=== PATIENT | female | born 1955 | race Caucasian/White ===

== ENCOUNTER 2017-06-28 20:55 | Emergency (ER) | payer MEDICARE ==
[~2017-06-28] VITALS: Ht 172.7 cm; Wt 157.4 kg
[2017-06-28] MEDS ORDERED: IV NORMAL SALINE 1,000ML 1,000 ML IV ONE (21:15)
[2017-06-28] MEDS ORDERED: ONDANSETRON PF 4 MG/2 ML VIAL. IV ONE (21:30)
[2017-06-28] MEDS ORDERED: IOHEXOL 300 MG/ML 75 ML VIAL. IV ONE ×2 (21:30)
[2017-06-28] MEDS ORDERED: KETOROLAC 30 MG/ML VIAL. IV ONE (21:30)
[2017-06-28] MEDS ORDERED: CONTRAST GIVEN MC PRN (21:45)
[2017-06-28 21:49] LABS: BASO # 0.1 x10^3/uL (0.0-0.2); BASO % 1 % (0-3); EOS # 0.2 x10^3/uL (0.0-0.7); EOS % 1 % (0-3); HEMATOCRIT 47.9 % (36.0-47.0); HEMOGLOBIN 16.3 g/dL (12.0-15.5); LYMPH # 1.4 x10^3/uL (1.0-4.8); LYMPH % 10 % (24-48); MEAN CORPUSCULAR HEMOGLOBIN 31 pg (25-35); MEAN CORPUSCULAR HGB CONC 34 g/dL (31-37); MEAN CORPUSCULAR VOLUME 91 fL (79-100); MONO # 0.7 x10^3/uL (0.0-1.1); MONO % 5 % (0-9); NEUT # 11.8 x10^3uL (1.8-7.7); NEUT % 84 % (31-73); PLATELET COUNT 353 x10^3/uL (140-400); RED BLOOD COUNT 5.25 x10^6/uL (3.50-5.40); RED CELL DISTRIBUTION WIDTH 13.5 % (11.5-14.5); WHITE BLOOD COUNT 14.1 x10^3/uL (4.0-11.0)
[2017-06-28 21:56] LABS: ALBUMIN 3.4 g/dL (3.4-5.0); ALBUMIN/GLOBULIN RATIO 0.7 (1.0-1.7); CALCIUM 9.2 mg/dL (8.5-10.1); CREATININE 0.8 mg/dL (0.6-1.0); GFR 72.9; TOTAL BILIRUBIN 0.9 mg/dL (0.2-1.0); TOTAL PROTEIN 8.4 g/dL (6.4-8.2)
--- NOTE | 2017-06-28 23:18 | RAD ---
INDICATION: Omni 300, 100ml IV. Abdominal pain, abdominal hernia. Hx , cholecystectomy, uterine ablation, dnc x2. Unable to use table straps to compress abdomen due to patient discomfort.
COMPARISON: None. TECHNIQUE: Axial CT images obtained through the abdomen and pelvis with contrast. One or more of the following individualized dose reduction techniques were utilized for this examination: 1. Automated exposure control; 2. Adjustment of the mA and/or kV according to patient size; 3. Use of iterative reconstruction technique. FINDINGS: Mild linear opacities at lung bases. Could be atelectasis or scarring. Abdominal aorta is not aneurysmal. Liver appears low attenuation and prominent in size. Could be from fatty infiltration. Mild possible nodularity of the contour. No peripancreatic fluid collection. Spleen unremarkable. No left-sided hydronephrosis. Urinary bladder is largely decompressed. No right-sided hydronephrosis. Large ventral abdominal wall hernia at the anterior aspect of the pelvis extending into the patient's pannus with multiple loops of bowel extending into it. This hernia sac is only partially visualized on this exam as it extends inferiorly. There are adjacent dilated loops of bowel within the abdomen with more distal decompression. Degenerative changes throughout the spine. There is some scoliotic curvature of the spine. Multilevel central canal and neural foraminal stenosis. IMPRESSION: Dilated loops of bowel are seen within the abdomen concerning for small bowel obstruction. There is a large ventral pelvic wall hernia just to the left midline extending into the pannus which is partially seen on this exam. This may be the site of obstruction given that the dilated loop of bowel extends into this region. There is some mild suspected associated edema to the mesentery. There is some questionable mild nodularity to the hepatic contour. Would correlate with patient history and symptoms in the region to ensure that there is not from chronic hepatic disease Electronically signed by: Randal Braun MD (06/28/2017 11:14 PM) [facility]
[2017-06-28 23:54] VITALS: BP 124/67
[2017-06-29] LABS: BILIRUBIN,URINE NEG (NEG); CLARITY,URINE HAZY; COLOR,URINE YELLOW; GLUCOSE,URINE 250 mg/dL (NEG); NITRITE,URINE NEG (NEG); RBC,URINE 0 /HPF (0-2); UROBILINOGEN,URINE 1 mg/dL (0.2 mg/dL)
[2017-06-29 00:01] LABS: BACTERIA,URINE FEW /HPF (0-FEW); SQUAMOUS EPITHELIAL CELL,UR FEW /LPF; WBC,URINE OCC /HPF (0-4)
--- NOTE | 2017-06-29 00:25 | PHYS DOC ---
Past History Past Medical History: CHF, COPD, Depression, Diabetes, GERD, High Cholesterol, Hypertension Past Surgical History: Cholecystectomy, , Tonsillectomy Alcohol Use: None Drug Use: None Adult General Chief Complaint Chief Complaint: ABDOMINAL PAIN HPI HPI 62-year-old female with a history of morbid obesity and a known anterior lower abdominal wall hernia now presents the emergency Department with worsening pain over the last day as well as nausea. Patient is concerned that she may have a recurrence of her hernia. She has had no vomiting. No fevers chills sweats or shaking chills. She's had normal bowel and bladder habits. Pain is not worse with movement. The remainder of her abdominal history includes laparoscopic cholecystectomy and gastroesophageal reflux disease. In addition patient has CHF , type 2 diabetes with insulin use, high cholesterol and high blood pressure, obstructive sleep apnea, depression Review of Systems Review of Systems Constitutional: Denies fever or chills [] Eyes: Denies change in visual acuity, redness, or eye pain [] HENT: Denies nasal congestion or sore throat [] Respiratory: Denies cough or shortness of breath [] Cardiovascular: No additional information not addressed in HPI [] GI: Denies abdominal pain, nausea, vomiting, bloody stools or diarrhea [] : Denies dysuria or hematuria [] Musculoskeletal: Denies back pain or joint pain [] Integument: Denies rash or skin lesions [] Neurologic: Denies headache, focal weakness or sensory changes [] Endocrine: Denies polyuria or polydipsia [] All other systems were reviewed and found to be within normal limits, except as documented in this note. Current Medications Current Medications Current Medications Medications (Trade) Dose Ordered Sig/Sebastian Start Time Stop Time Status Last Admin Dose Admin Info (Do NOT chart on this entry -- for MONITORING) 1 each PRN DAILY PRN 06/28/17 21:45 06/30/17 21:44 Iohexol (Omnipaque 300 Mg/ml) 75 ml 1X ONCE 06/28/17 21:30 06/28/17 21:31 DC 06/28/17 22:18 75 ML Ketorolac Tromethamine (Toradol) 30 mg 1X ONCE 06/28/17 21:30 06/28/17 21:31 DC 06/28/17 21:34 30 MG Ondansetron HCl (Zofran) 4 mg 1X ONCE 06/28/17 21:30 06/28/17 21:31 DC 06/28/17 21:34 4 MG Sodium Chloride 1,000 ml @ 1,000 mls/hr 1X ONCE 06/28/17 21:15 06/28/17 22:14 DC 06/28/17 21:34 1,000 MLS/HR Allergies Allergies Allergies Coded Allergies Type Severity Reaction Last Updated Verified No Known Drug Allergies 06/28/17 No Physical Exam Physical Exam Morbidly obese 62-year-old female alert and communicative in no acute distress. She has very large pannus with mild tenderness in the lower midabdomen. No guarding or rebound. No skin changes. Patient has a vertical scar from her umbilicus to her to accept this is distribution. No CVA tenderness. Normal bowel sounds Constitutional: Well developed, well nourished, no acute distress, non-toxic appearance. [] HENT: Normocephalic, atraumatic, bilateral external ears normal, oropharynx moist, no oral exudates, nose normal. [] Eyes: PERRLA, EOMI, conjunctiva normal, no discharge. [] Neck: Normal range of motion, no tenderness, supple, no stridor. [] Cardiovascular:Heart rate regular rhythm, no murmur [] Lungs & Thorax: Bilateral breath sounds clear to auscultation [] Abdomen: Bowel sounds normal, soft, abdominal exam as above no pulsatile masses. [] Skin: Warm, dry, no erythema, no rash. [] Back: No tenderness, no CVA tenderness. [] Extremities: No tenderness, no cyanosis, no clubbing, ROM intact, no edema. [] Neurologic: Alert and oriented X 3, normal motor function, normal sensory function, no focal deficits noted. [] Psychologic: Affect normal, judgement normal, mood normal. [] Current Patient Data Vital Signs Vital Signs Date Time Temp Pulse Resp B/P (MAP) Pulse Ox O2 Delivery O2 Flow Rate FiO2 06/28/17 23:54 90 18 124/67 (86) 98 Room Air 06/28/17 21:17 98.1 2.0 Lab Results Laboratory Tests Test 06/28/17 21:25 06/28/17 23:35 White Blood Count 14.1 x10^3/uL (4.0-11.0) H Red Blood Count 5.25 x10^6/uL (3.50-5.40) Hemoglobin 16.3 g/dL (12.0-15.5) H Hematocrit 47.9 % (36.0-47.0) H Mean Corpuscular Volume 91 fL (79-100) Mean Corpuscular Hemoglobin 31 pg (25-35) Mean Corpuscular Hemoglobin Concent 34 g/dL (31-37) Red Cell Distribution Width 13.5 % (11.5-14.5) Platelet Count 353 x10^3/uL (140-400) Neutrophils (%) (Auto) 84 % (31-73) H Lymphocytes (%) (Auto) 10 % (24-48) L Monocytes (%) (Auto) 5 % (0-9) Eosinophils (%) (Auto) 1 % (0-3) Basophils (%) (Auto) 1 % (0-3) Neutrophils # (Auto) 11.8 x10^3uL (1.8-7.7) H Lymphocytes # (Auto) 1.4 x10^3/uL (1.0-4.8) Monocytes # (Auto) 0.7 x10^3/uL (0.0-1.1) Eosinophils # (Auto) 0.2 x10^3/uL (0.0-0.7) Basophils # (Auto) 0.1 x10^3/uL (0.0-0.2) Sodium Level 134 mmol/L (136-145) L Potassium Level 4.0 mmol/L (3.5-5.1) Chloride Level 95 mmol/L (98-107) L Carbon Dioxide Level 33 mmol/L (21-32) H Anion Gap 6 (6-14) Blood Urea Nitrogen 17 mg/dL (7-20) Creatinine 0.8 mg/dL (0.6-1.0) Estimated GFR (Cockcroft-Gault) 72.9 BUN/Creatinine Ratio 21 (6-20) H Glucose Level 215 mg/dL (70-99) H Calcium Level 9.2 mg/dL (8.5-10.1) Total Bilirubin 0.9 mg/dL (0.2-1.0) Aspartate Amino Transferase (AST) 14 U/L (15-37) L Alanine Aminotransferase (ALT) 23 U/L (14-59) Alkaline Phosphatase 118 U/L (46-116) H Total Protein 8.4 g/dL (6.4-8.2) H Albumin 3.4 g/dL (3.4-5.0) Albumin/Globulin Ratio 0.7 (1.0-1.7) L Lipase 119 U/L (73-393) Urine Collection Type Unknown Urine Color Yellow Urine Clarity Hazy Urine pH 5.5 Urine Specific [place] 1.025 Urine Protein 100 mg/dl (NEG-TRACE) Urine Glucose (UA) 250 mg/dL (NEG) Urine Ketones (Stick) Neg mg/dL (NEG) Urine Blood Neg (NEG) Urine Nitrite Neg (NEG) Urine Bilirubin Neg (NEG) Urine Urobilinogen Dipstick 1 mg/dL (0.2 mg/dL) Urine Leukocyte Esterase Neg (NEG) Urine RBC 0 /HPF (0-2) Urine WBC Occ /HPF (0-4) Urine Squamous Epithelial Cells Few /LPF Urine Bacteria Few /HPF (0-FEW) EKG EKG [] Radiology/Procedures Radiology/Procedures [] Course & Med Decision Making Course & Med Decision Making Pertinent Labs and Imaging studies reviewed. (See chart for details) Signs and symptoms consistent with possible complication of known abdominal wall hernia. Patient hemodynamically stable. Very mild tachycardia on arrival resolved after IV fluids. Blood pressure stable. Patient has no active vomiting and nausea is relieved after treatment. She was hydrated with a liter of normal saline. Labs with mildly elevated white blood cell count of 14.1. Blood glucose 215. CT shows anterior lower abdominal wall hernia with evidence of small bowel distention suggestive of small bowel obstruction. Patient will be kept nothing by mouth. Case discussed with Dr. Archuleta surgery on-call at [facility]. He is aware the history and findings, agrees with current therapy, and will provide his services in consultation at [facility] upon the patient's transfer and admission. Case discussed with Dr. Gallo the hospitalist on-call who is aware the history and findings and she accepts the patient in patient to her service to the [facility] floor in transfer [] Dragon Disclaimer Dragon Disclaimer This electronic medical record was generated, in whole or in part, using a voice recognition dictation system. Departure Departure: Impression: Primary Impression: Abdominal wall hernia Additional Impressions: Small bowel obstruction Abdominal pain Leukocytosis Disposition: 02 XFER SHT-TRM HOSP Condition: STABLE Referrals: VIKASH NUNEZ APRN (PCP) Problem Qualifiers BRUNO SUE MD June 29, 2017 00:25
[2017-06-29] MEDS ORDERED: IBUP800T19 PO (02:24)
[2017-06-29] MEDS ORDERED: BUPR-192 PO (02:24)
[2017-06-29] MEDS ORDERED: ASPI-630 PO (02:24)
[2017-06-29] MEDS ORDERED: INSU100I13 SQ (02:24)
[2017-06-29] MEDS ORDERED: LISI2.5T PO (02:25)
[2017-06-29] MEDS ORDERED: TRAM-48 PO (02:31)
[2017-06-29] MEDS ORDERED: VENL75CA PO (02:31)
[2017-06-29] MEDS ORDERED: MEGE40TA PO (02:31)
[2017-06-29] MEDS ORDERED: NYST15PO2 TP (02:31)
[2017-06-29] MEDS ORDERED: TORS20TA2 PO (02:31)
[2017-06-29] MEDS ORDERED: TRIA15CR50 TP (02:31)
[2017-06-29] MEDS ORDERED: METF10002 PO (02:31)
[2017-06-29] MEDS ORDERED: METO25TA4 PO (02:31)
[2017-06-29] MEDS ORDERED: SIMV40TA3 PO (02:31)
[2017-06-29] MEDS ORDERED: PROM25TA10 PO (02:31)
[2017-06-29] MEDS ORDERED: POTA10TA10 PO (02:31)
[2017-06-29] MEDS ORDERED: OMEP40CA5 PO (02:31)
== END 2017-06-29 00:56 | disposition short-term general hospital (02) ==
LOC: ER 20:55
DX: K43.9 Ventral hernia without obstruction or gangrene (principal); K56.699 Other intestinal obstruction unspecified as to partial versus complete obstruction; D72.829 Elevated white blood cell count, unspecified; J44.9 Chronic obstructive pulmonary disease, unspecified; E11.9 Type 2 diabetes mellitus without complications; K21.9 Gastro-esophageal reflux disease without esophagitis; E78.00 Pure hypercholesterolemia, unspecified; I11.0 Hypertensive heart disease with heart failure; I50.9 Heart failure, unspecified; E66.01 Morbid (severe) obesity due to excess calories; G47.33 Obstructive sleep apnea (adult) (pediatric); F32.9 Major depressive disorder, single episode, unspecified; Z90.49 Acquired absence of other specified parts of digestive tract; Z68.43 Body mass index [BMI] 50.0-59.9, adult
CPT/HCPCS: 36415; 74177; 80053; 81001; 83690; 85025; 96374; 96375; 99285; J1885; J2405; Q9967; J7030

== ENCOUNTER → 2017-08-05 | Outpatient (CLI) | payer MEDICARE ==
[~2017-08-05] MED LIST: ASPI-630 PO; BUPR-192 PO; IBUP800T19 PO; INSU100I13 SQ; IOHEXOL 240 MG/ML 50ML VIAL. PO ONE; IOHEXOL 300 MG/ML 50 ML VIAL. IV ONE; IOHEXOL 300 MG/ML 75 ML VIAL. IV ONE; LISI2.5T PO; MEGE40TA PO; METF10003 PO; METO25TA4 PO; NYST15PO2 TP; OMEP40CA5 PO; POTA10TA10 PO; PROM25TA10 PO; SIMV40TA3 PO; TORS20TA2 PO; TRAM-48 PO; TRIA15CR50 TP; VENL75CA PO
--- NOTE | 2017-08-05 09:42 | RAD ---
PQRS Compliance Statement: One or more of the following individualized dose reduction techniques were utilized for this examination: 1. Automated exposure control 2. Adjustment of the mA and/or kV according to patient size 3. Use of iterative reconstruction technique CT abdomen/pelvis with contrast 08/05/2017 9:06 AM INDICATION: Hernia repair surgery in June. Abscess at incisional site. COMPARISON: CT abdomen/pelvis June 28, 2017. TECHNIQUE: Multiple axial CT images of the abdomen and pelvis were obtained after the intravenous administration of nonionic contrast. Coronal and sagittal reformats are provided. FINDINGS: Lung bases are clear. Heart size is within normal limits. No suspicious hepatic lesion is visualized. The spleen is nonenlarged. Adrenal glands are normal in appearance. Pancreas is normal in appearance. The gallbladder is surgically absent. The abdominal aorta is normal in course and caliber. There are no pathologically enlarged lymph nodes in the abdomen and pelvis. There is no abdominal free fluid. There is no free intraperitoneal air. The kidneys enhance symmetrically. There is no suspicious renal mass. There is no hydronephrosis. There are no suspected calculi within the kidneys, ureters or urinary bladder. Oral contrast was administered. Opacified bowel loops demonstrate normal mucosal fold pattern. Small and large bowel are normal in caliber. There is no evidence for bowel obstruction. There are no pericolonic inflammatory changes. Appendix is not definitively visualized. Postoperative changes are identified from ventral hernia repair. Superficial and inferior to the mesh, there is a gas containing thick walled collection measuring 8.3 x 4.0 x 5.4 cm. Given adjacent inflammatory changes, and is difficult to evaluate for recurrent hernia. Subcutaneous nodule in the right ventral abdominal subcutaneous fat measures 1.7 cm and may represent an injection site granuloma. Uterus and adnexa are normal in appearance. Urinary bladder is within normal limits given degree of distention. Follicular changes are identified in the right adnexa. No suspicious osseous lesions are identified. IMPRESSION: Suspect 8.3 x 4.0 x 5.4 cm abscess superficial and inferior to the abdominal mesh from prior hernia repair surgery. No evidence for bowel obstruction or inflammation. Electronically signed by: Kelly Ramires MD (08/05/2017 9:38 AM) [email or web address]
== END | disposition home or self-care (01) ==
LOC: CT 07:56
PROVIDERS: ATTEND Nurse Practitioner Family
DX: L02.211 Cutaneous abscess of abdominal wall (principal)
CPT/HCPCS: 74177; Q9966; Q9967

== ENCOUNTER 2018-08-29 13:04 | Inpatient (IN) | payer MEDICARE, OTHER ==
[~2018-08-29] VITALS: Ht 167.6 cm; Wt 157.2 kg
[~2018-08-29 13:04] MED LIST changes: -IOHEXOL 240 MG/ML 50ML VIAL. PO ONE; -IOHEXOL 300 MG/ML 50 ML VIAL. IV ONE; -IOHEXOL 300 MG/ML 75 ML VIAL. IV ONE; -METF10003 PO; +METF10007 PO
--- NOTE | 2018-08-29 14:53 | RAD ---
Acute abdominal series with single view chest 08/29/2018 INDICATION: Altered mental status. History of bowel obstruction. COMPARISON: CT abdomen/pelvis August 05, 2017 TECHNIQUE: Single view of the chest, upright view of the abdomen and 6 supine views of the abdomen are provided. FINDINGS: Cardiac mediastinal silhouette is borderline in size. Mild pulmonary vascular congestion. No pleural effusions are pneumothorax. No free intraperitoneal air. Cholecystectomy clips are identified in the right upper quadrant abdomen. There are no dilated loops of small or large bowel. There are no differential air-fluid levels. Moderate amount of stool is noted within the cecum. There is a ventral abdominal hernia containing nondilated loops of bowel. IMPRESSION: Nonobstructive bowel gas pattern with moderate amount of fecal contents throughout the colon. Abdominal hernia is present containing nondilated bowel loops. Electronically signed by: Kelly Ramires MD (08/29/2018 2:50 PM) [email or web address]
[2018-08-29 15:02] LABS: BASO # 0.1 x10^3/uL (0.0-0.2); BASO % 0 % (0-3); EOS % 0 % (0-3); HEMATOCRIT 45.2 % (36.0-47.0); LYMPH # 0.8 x10^3/uL (1.0-4.8); LYMPH % 5 % (24-48); MEAN CORPUSCULAR HEMOGLOBIN 31 pg (25-35); MEAN CORPUSCULAR HGB CONC 33 g/dL (31-37); MEAN CORPUSCULAR VOLUME 93 fL (79-100); MONO # 0.8 x10^3/uL (0.0-1.1); MONO % 4 % (0-9); NEUT # 15.4 x10^3uL (1.8-7.7); NEUT % 91 % (31-73); PLATELET COUNT 243 x10^3/uL (140-400); RED BLOOD COUNT 4.86 x10^6/uL (3.50-5.40); RED CELL DISTRIBUTION WIDTH 13.5 % (11.5-14.5)
[2018-08-29 15:11] LABS: AMORPHOUS SEDIMENT,UR PRESENT /HPF; BACTERIA,URINE 0 /HPF (0-FEW); BILIRUBIN,URINE NEG (NEG); CLARITY,URINE CLOUDY; COLOR,URINE YELLOW; GLUCOSE,URINE NEG (NEG); GRANULAR CASTS,URINE OCC /HPF; HYALINE CASTS, URINE OCC /HPF; NITRITE,URINE NEG (NEG); SQUAMOUS EPITHELIAL CELL,UR OCC /LPF; UROBILINOGEN,URINE 1 mg/dL (0.2 mg/dL)
[2018-08-29 15:25] LABS: ALBUMIN 2.7 g/dL (3.4-5.0); ALBUMIN/GLOBULIN RATIO 0.6 (1.0-1.7); CALCIUM 9.1 mg/dL (8.5-10.1); CREATININE 0.9 mg/dL (0.6-1.0); GFR 63.4; MAGNESIUM 1.6 mg/dL (1.8-2.4); POTASSIUM 4.3 mmol/L (3.5-5.1); TOTAL BILIRUBIN 0.6 mg/dL (0.2-1.0); TOTAL PROTEIN 7.5 g/dL (6.4-8.2)
--- NOTE | 2018-08-29 15:52 | EKG ---
[address] [address] Test Date: 2018-08-29 Test Time: 14:59:14 Pat Name: IZABEL WATERS Department: Room: Gender: F Belt Builder: MISSY : 1955 Requested By: GEORGIA RINCON Order Number: [id number] Reading MD: Measurements Intervals [place] Rate: 116 P: -105 OR: 116 QRS: 24 QRSD: 96 T: 48 QT: 310 QTc: 437 Interpretive Statements SUPRAVENTRICULAR RHYTHM QRS(T) CONTOUR ABNORMALITY CONSIDER ANTEROSEPTAL MYOCARDIAL DAMAGE POSSIBLY ABNORMAL ECG RI6.01 No previous ECG available for comparison
--- NOTE | 2018-08-29 16:35 | RAD ---
Examination: CT HEAD WO CONTRAST History: Confusion Comparison/Correlation: None Findings: Axial images of the head were obtained without contrast. Ventricles are normal size. No intracranial hemorrhage, midline shift, or mass effect. Globes and optic nerves are unremarkable. Paranasal sinuses are grossly unremarkable. No acute bony process. Impression: No acute process. PQRS Compliance Statement: One or more of the following individualized dose reduction techniques were utilized for this examination: 1. Automated exposure control 2. Adjustment of the mA and/or kV according to patient size 3. Use of iterative reconstruction technique Electronically signed by: Sam Wilkes MD (08/29/2018 4:32 PM) [facility]
--- NOTE | 2018-08-29 16:48 | PHYS DOC ---
Past History Past Medical History: CHF, COPD, Depression, Diabetes, High Cholesterol, Hypertension Past Surgical History: Cholecystectomy, , Tonsillectomy Alcohol Use: None Drug Use: None Adult General Chief Complaint Chief Complaint: ALTERED MENTAL STATUS HPI HPI Patient is a 63 year old female who presents with complaint of confusion and generalized weakness. Patient was brought the emergency department by family. Patient had a reported fall last night and states that she fell onto her left side under a picture frame. States she had difficulties been able to get herse lf up off the floor. Family note that she is confused to time and events. This is a significant change in her normal mental status. Patient has history morbid obesity, congestive heart failure, COPD, and diabetes mellitus. Currently denies any chest or abdominal pain. Has had previous history of intestinal obstruction and had to undergo laparotomy 1 year ago with placement of mesh. Denies any change in bowel habits currently. Reports having a fever last night of 101F but no fevers today. Family's concern for possible infection, especially possible urinary tract infection. Review of Systems Review of Systems Constitutional: Fever, generalized weakness[] Eyes: Denies change in visual acuity, redness, or eye pain [] HENT: Denies nasal congestion or sore throat [] Respiratory: Denies shortness of breath or cough[] Cardiovascular: Denies chest pain or edema[] GI: Denies abdominal pain, nausea, vomiting, bloody stools or diarrhea [] : Denies dysuria or hematuria [] Musculoskeletal: Denies back pain or joint pain [] Integument: Denies rash or skin lesions [] Neurologic: Confusion, denies focal weakness or sensory[] All other systems were reviewed and found to be within normal limits, except as documented in this note. Allergies Allergies Allergies Coded Allergies Type Severity Reaction Last Updated Verified No Known Drug Allergies 06/28/17 No Physical Exam Physical Exam Constitutional: Alert, afebrile, morbidly obese. [] HENT: Normocephalic, atraumatic, bilateral external ears normal, oropharynx moist, no oral exudates, nose normal. [] Eyes: PERRLA, EOMI, conjunctiva normal, no discharge. [] Neck: Normal range of motion, no tenderness, supple, no stridor. [] Cardiovascular:Heart rate regular rhythm, no murmur [] Lungs & Thorax: Bilateral breath sounds clear to auscultation [] Abdomen: Bowel sounds normal, soft, no tenderness, no masses, no pulsatile masses. [] Skin: Warm, dry, no erythema, no rash. [] Back: Abrasions to left buttock, no cellulitic change, no midline or paraspinous muscle tenderness, no CVA tenderness. [] Extremities: No tenderness, no cyanosis, no clubbing, ROM intact, no edema. [] Neurologic: Alert, oriented to person and place only, normal motor function, normal sensory function, no focal deficits noted. [] Current Patient Data Vital Signs Vital Signs Date Time Temp Pulse Resp B/P (MAP) Pulse Ox O2 Delivery O2 Flow Rate FiO2 08/29/18 13:15 99.1 114 16 98 Nasal Cannula 2.0 Lab Results Laboratory Tests Test 08/29/18 14:09 08/29/18 14:45 08/29/18 14:51 Glucose (Fingerstick) 136 mg/dL (70-99) H Urine Collection Type U cath Urine Color Yellow Urine Clarity Cloudy Urine pH 5.5 Urine Specific [place] >=1.030 Urine Protein >100 mg/dl (NEG-TRACE) Urine Glucose (UA) Neg mg/dL (NEG) Urine Ketones (Stick) Neg mg/dL (NEG) Urine Blood Large (NEG) Urine Nitrite Neg (NEG) Urine Bilirubin Neg (NEG) Urine Urobilinogen Dipstick 1 mg/dL (0.2 mg/dL) Urine Leukocyte Esterase Neg (NEG) Urine RBC 3-5 /HPF (0-2) Urine WBC 1-4 /HPF (0-4) Urine Squamous Epithelial Cells Occ /LPF Urine Amorphous Sediment Present /HPF Urine Bacteria 0 /HPF (0-FEW) Urine Hyaline Casts Occ /HPF Urine Granular Casts Occ /HPF White Blood Count 17.0 x10^3/uL (4.0-11.0) H Red Blood Count 4.86 x10^6/uL (3.50-5.40) Hemoglobin 15.0 g/dL (12.0-15.5) Hematocrit 45.2 % (36.0-47.0) Mean Corpuscular Volume 93 fL (79-100) Mean Corpuscular Hemoglobin 31 pg (25-35) Mean Corpuscular Hemoglobin Concent 33 g/dL (31-37) Red Cell Distribution Width 13.5 % (11.5-14.5) Platelet Count 243 x10^3/uL (140-400) Neutrophils (%) (Auto) 91 % (31-73) H Lymphocytes (%) (Auto) 5 % (24-48) L Monocytes (%) (Auto) 4 % (0-9) Eosinophils (%) (Auto) 0 % (0-3) Basophils (%) (Auto) 0 % (0-3) Neutrophils # (Auto) 15.4 x10^3uL (1.8-7.7) H Lymphocytes # (Auto) 0.8 x10^3/uL (1.0-4.8) L Monocytes # (Auto) 0.8 x10^3/uL (0.0-1.1) Eosinophils # (Auto) 0.0 x10^3/uL (0.0-0.7) Basophils # (Auto) 0.1 x10^3/uL (0.0-0.2) Platelet Estimate Pending Sodium Level 132 mmol/L (136-145) L Potassium Level 4.3 mmol/L (3.5-5.1) Chloride Level 95 mmol/L (98-107) L Carbon Dioxide Level 28 mmol/L (21-32) Anion Gap 9 (6-14) Blood Urea Nitrogen 16 mg/dL (7-20) Creatinine 0.9 mg/dL (0.6-1.0) Estimated GFR (Cockcroft-Gault) 63.4 BUN/Creatinine Ratio 18 (6-20) Glucose Level 175 mg/dL (70-99) H Calcium Level 9.1 mg/dL (8.5-10.1) Magnesium Level 1.6 mg/dL (1.8-2.4) L Total Bilirubin 0.6 mg/dL (0.2-1.0) Aspartate Amino Transferase (AST) 207 U/L (15-37) H Alanine Aminotransferase (ALT) 65 U/L (14-59) H Alkaline Phosphatase 97 U/L (46-116) Total Protein 7.5 g/dL (6.4-8.2) Albumin 2.7 g/dL (3.4-5.0) L Albumin/Globulin Ratio 0.6 (1.0-1.7) L EKG EKG Interpreted by me: Heart rate 116, sinus tachycardia, normal intervals, normal axis, no acute ST/T-wave abnormalities present[] Radiology/Procedures Radiology/Procedures [address] [address] IMAGING REPORT Signed PATIENT: IZABEL WATERS ACCOUNT: [id number] : 1955 LOCATION: ER AGE: 63 SEX: F EXAM STATUS: REG ER ORD. PHYSICIAN: GEORGIA RINCON MD REASON: confusion PROCEDURE: CT HEAD WO CONTRAST Examination: CT HEAD WO CONTRAST History: Confusion Comparison/Correlation: None Findings: Axial images of the head were obtained without contrast. Ventricles are normal size. No intracranial hemorrhage, midline shift, or mass effect. Globes and optic nerves are unremarkable. Paranasal sinuses are grossly unremarkable. No acute bony process. Impression: No acute process. PQRS Compliance Statement: One or more of the following individualized dose reduction techniques were utilized for this examination: 1. Automated exposure control 2. Adjustment of the mA and/or kV according to patient size 3. Use of iterative reconstruction technique Electronically signed by: Sam Singletary MD (08/29/2018 4:32 PM) [facility] DICTATED AND SIGNED BY: SAM SINGLETARY MD DATE: 08/29/18 163 CC: GEORGIA RINCON MD; VIKASH NUNEZ APRN ~ [address] [address] IMAGING REPORT Signed PATIENT: IZABEL WATERS ACCOUNT: [id number] : 1955 LOCATION: ER AGE: 63 SEX: F EXAM STATUS: REG ER ORD. PHYSICIAN: GEORGIA RINCON MD REASON: altered mental status, history of bowel obstruction PROCEDURE: ACUTE ABDOMEN SERIES Acute abdominal series with single view chest 08/29/2018 INDICATION: Altered mental status. History of bowel obstruction. COMPARISON: CT abdomen/pelvis August 05, 2017 TECHNIQUE: Single view of the chest, upright view of the abdomen and 6 supine views of the abdomen are provided. FINDINGS: Cardiac mediastinal silhouette is borderline in size. Mild pulmonary vascular congestion. No pleural effusions are pneumothorax. No free intraperitoneal air. Cholecystectomy clips are identified in the right upper quadrant abdomen. There are no dilated loops of small or large bowel. There are no differential air-fluid levels. Moderate amount of stool is noted within the cecum. There is a ventral abdominal hernia containing nondilated loops of bowel. IMPRESSION: Nonobstructive bowel gas pattern with moderate amount of fecal contents throughout the colon. Abdominal hernia is present containing nondilated bowel loops. Electronically signed by: Bonnie Gutierrez MD (08/29/2018 2:50 PM) [id number] DICTATED AND SIGNED BY: BONNIE GUTIERREZ MD DATE: 08/29/18 [id number] CC: GEORGIA RINCON MD; VIKASH NUNEZ APRN ~ [] Course & Med Decision Making Course & Med Decision Making Pertinent Labs and Imaging studies reviewed. (See chart for details) Patient vital signs and blood work meet SIRS criteria, however no obvious source of bacterial infection identified at this time. Due to continued confusion, the patient will need admission to the hospital for further evaluation and treatment. I spoke with Dr. Stinson who will accept care of patient in hospital. An order was placed to consult Dr. Nielsen of neurology to follow patient in hospital. Dragon Disclaimer Dragon Disclaimer This electronic medical record was generated, in whole or in part, using a voice recognition dictation system. Departure Departure: Impression: Primary Impression: Altered mental status Additional Impressions: SIRS (systemic inflammatory response syndrome) Type 2 diabetes mellitus Morbid obesity Disposition: ADMITTED INPATIENT Admitting Physician: Amanda Stinson Condition: GUARDED Referrals: VIKASH NUNEZ APRN (PCP) Problem Qualifiers Primary Impression: Altered mental status Altered mental status type: disorientation Qualified Codes: R41.0 - Disorientation, unspecified Additional Impressions: Type 2 diabetes mellitus Diabetes mellitus medical terminologist insulin use: with medical terminologist use Diabetes mellitus complication status: without complication Qualified Codes: E11.9 - Type 2 diabetes mellitus without complications; Z79.4 - senior care (current) use of insulin GEORGIA RINCON MD Aug 29, 2018 16:48
[2018-08-29] MEDS ORDERED: IV NORMAL SALINE 1,000ML 1,000 ML IV SCH (18:09)
[2018-08-29] MEDS ORDERED: ACETAMINOPHEN 325 MG TABLET PO PRN ×2 (18:15→18:30)
[2018-08-29] MEDS ORDERED: ONDANSETRON PF 4 MG/2 ML VIAL. IV PRN ×2 (18:15→18:30)
[2018-08-29 18:39] VITALS: BP 111/70
[2018-08-29] MEDS: NYSTATIN TOPICAL POWDER 15GM BOTTLE. TP SCH (22:00)
[2018-08-29] MEDS: INSULIN GLARGINE 300 UNITS/3 ML INSULN.PEN. SQ SCH (22:00)
[2018-08-29 22:02] LABS: % BANDS 4 % (0-9); % EOS 1 % (0-5); % LYMPHS 2 % (24-48); % MONOS 3 % (0-10); % SEGS 90 % (35-66)
[2018-08-29 22:05] LABS: PLT ESTIMATE ADEQUATE (ADEQUATE); POLYCHROMASIA SLIGHT; SCHISTOCYTES OCC
[2018-08-29] MEDS: METOPROLOL TART IMMED RELEASE 25 MG TABLET PO SCH (22:40)
[2018-08-29] MEDS: VENLAFAXINE XR 37.5 MG CAP.ER.24H. PO SCH (22:40)
[2018-08-29] MEDS: IV NORMAL SALINE 1,000ML 1,000 ML IV SCH (22:40)
[2018-08-29 22:48] VITALS: BP 123/84
[2018-08-30] MEDS: IV NORMAL SALINE 1,000ML 1,000 ML IV SCH ×2 (02:30→13:27)
[2018-08-30 05:45] VITALS: BP 104/68
[2018-08-30] MEDS ORDERED: IOHEXOL 300 MG/ML 50 ML VIAL. IV ONE (07:45)
[2018-08-30 07:47] LABS: BASO % 0 % (0-3); EOS % 0 % (0-3); HEMATOCRIT 42.3 % (36.0-47.0); HEMOGLOBIN 14.1 g/dL (12.0-15.5); LYMPH # 0.9 x10^3/uL (1.0-4.8); LYMPH % 8 % (24-48); MEAN CORPUSCULAR HEMOGLOBIN 31 pg (25-35); MEAN CORPUSCULAR HGB CONC 33 g/dL (31-37); MEAN CORPUSCULAR VOLUME 93 fL (79-100); MONO # 0.7 x10^3/uL (0.0-1.1); MONO % 6 % (0-9); NEUT # 9.9 x10^3uL (1.8-7.7); NEUT % 85 % (31-73); PLATELET COUNT 239 x10^3/uL (140-400); RED BLOOD COUNT 4.57 x10^6/uL (3.50-5.40); RED CELL DISTRIBUTION WIDTH 13.4 % (11.5-14.5); WHITE BLOOD COUNT 11.6 x10^3/uL (4.0-11.0)
[2018-08-30 07:59] LABS: ALBUMIN 2.5 g/dL (3.4-5.0); ALBUMIN/GLOBULIN RATIO 0.5 (1.0-1.7); CALCIUM 9.1 mg/dL (8.5-10.1); CREATININE 0.9 mg/dL (0.6-1.0); GFR 63.4; MAGNESIUM 1.6 mg/dL (1.8-2.4); TOTAL BILIRUBIN 0.8 mg/dL (0.2-1.0); TOTAL PROTEIN 7.4 g/dL (6.4-8.2)
[2018-08-30] MEDS ORDERED: MEGE20TA PO (08:25)
[2018-08-30] MEDS: LISINOPRIL 2.5 MG TABLET PO SCH (08:28)
[2018-08-30] MEDS: METOPROLOL TART IMMED RELEASE 25 MG TABLET PO SCH ×2 (08:28→21:12)
[2018-08-30] MEDS: VENLAFAXINE XR 37.5 MG CAP.ER.24H. PO SCH ×2 (08:29→21:12)
[2018-08-30] MEDS: MAGNESIUM OXIDE 400 MG TABLET PO SCH ×2 (08:29→21:12)
[2018-08-30] MEDS: NYSTATIN TOPICAL POWDER 15GM BOTTLE. TP SCH ×2 (08:30→21:00)
[2018-08-30] MEDS: TORSEMIDE 20 MG TABLET. PO SCH (08:35)
[2018-08-30] MEDS ORDERED: POTASSIUM CHLORIDE 20 MEQ PACKET. PO SCH (09:00)
[2018-08-30] MEDS: MEGESTROL 40 MG TABLET. PO SCH (09:28)
[2018-08-30] MEDS: POTASSIUM CHLORIDE 20 MEQ TABLET.ER. PO SCH ×2 (09:29→21:11)
--- NOTE | 2018-08-30 09:32 | RAD ---
PQRS Compliance Statement: One or more of the following individualized dose reduction techniques were utilized for this examination: 1. Automated exposure control 2. Adjustment of the mA and/or kV according to patient size 3. Use of iterative reconstruction technique CT abdomen/pelvis with contrast 08/30/2018 7:33 AM INDICATION: Elevated liver function tests COMPARISON: CT abdomen/pelvis August 05, 2017 TECHNIQUE: Multiple axial CT images of the abdomen and pelvis were obtained after the intravenous administration of 100 mL Omnipaque 300. Coronal and sagittal reformats are provided. FINDINGS: Bandlike densities within the right middle lobe and bilateral lower lobes most favors subsegmental atelectasis. Heart size is within normal limits. Mild hepatic steatosis. Portal venous system is patent. No intrahepatic or extrahepatic biliary ductal dilatation status post cholecystectomy. Spleen, bilateral adrenal glands and pancreas are normal in appearance. Abdominal aorta is normal in course and caliber. Right external iliac lymph nodes measure up to 11 mm by short axis, stable dating back to August 05, 2017. Nonenlarged common iliac lymph nodes are identified in the right measuring up to 7 mm by short axis. Marginal increase in size of peritoneal lymph nodes which remain subcentimeter. For example there is a 8 mm lymph node in the aortocaval distribution, previously measuring 5 mm (series 2, image 66). There is no free fluid or free intraperitoneal air. There is a large ventral abdominal hernia measuring 9.4 cm at the neck containing nondilated loops of small bowel. Appendix is normal in appearance. No evidence for bowel obstruction or inflammation. The kidneys enhance symmetrically. There is no suspicious renal mass. There is no hydronephrosis. There are no suspected calculi within the kidneys, ureters or urinary bladder. Right adnexal cyst measures 4.3 x 3.9 cm, previously measuring 3.1 x 2.8 cm. Uterus is within normal limits. Urinary bladder is within normal limits given degree of distention. No suspicious osseous abnormality is identified. IMPRESSION: 1. Diffuse hepatic steatosis. No intrahepatic or extrahepatic biliary ductal dilatation. 2. Status post cholecystectomy. 3. Borderline increase in size of retroperitoneal lymph nodes which remain nonenlarged by size criteria. 4. Large ventral abdominal hernia measuring 9.4 cm at the neck containing nondilated loops of small bowel. 5. Increase in size of right adnexal cyst now measuring 4.3 x 3.9 cm. Consideration may be given for cystic ovarian neoplasm such as serous cystadenoma. Electronically signed by: Kelly Ramires MD (08/30/2018 9:29 AM) [id number]
[2018-08-30] MEDS ORDERED: PIP/TAZO PER PHARMACY MC PRN (09:45)
[2018-08-30] MEDS ORDERED: VANCOMYCIN 2 GM in IV NORMAL SALINE 500ML 500 ML IV ONE ×2 (10:00→12:00)
[2018-08-30 11:13] VITALS: BP 92/61
[2018-08-30] MEDS: PIPERACILLIN/TAZOBACTAM 4.5 GM in IV NORMAL SALINE 50ML 50 ML IV SCH ×2 (13:27→21:11)
[2018-08-30] MEDS ORDERED: diphenhydrAMINE 50 MG/ML VIAL IVP PRN (13:45)
[2018-08-30] MEDS: VANCOMYCIN PER PHARMACY MC PRN (14:12)
--- NOTE | 2018-08-30 15:46 | HP ---
ADMIT DATE: HISTORY OF PRESENT ILLNESS: The patient is a 63-year-old female patient who came to the Emergency Room with altered mental status. According to her, she apparently has had chills and fever up to 101.3 on Tuesday. On Tuesday early in the morning, she fell onto her left side under a picture frame and said that she has difficulty being able to get herself up off the floor. She has to bang on the floor to get the attention of her daughter who came and basically helped her to get up of the floor. Her family noted that she is confused to time and events and this is a significant change from her normal mental status and therefore, she was brought to the Emergency Room, where she was investigated and the family were concerned about possible infection, especially possible urinary tract infection. She was investigated in the Emergency Room and her lab work showed a white cell count was 17,000. However, her urinalysis was essentially unremarkable. The urine was negative for nitrite. There was no leukocyte esterase, only 1-4 wbc's and very few bacteria, although has large protein and large amount of blood. Her chemistry showed that she has also hyponatremia, hypomagnesemia and her liver enzymes are also slightly elevated including AST, ALT, although the total bilirubin and alkaline phosphatase were normal. The patient was admitted with diagnosis of altered mental status, together with type 2 diabetes and SIRS, systemic inflammatory response syndrome, without any clearcut obvious focus of infection. PAST MEDICAL HISTORY: Significant for hypertension; congestive heart failure; hyperlipidemia; morbid obesity; obstructive sleep apnea, on CPAP. She is known to have gastroesophageal reflux disease, type 2 diabetes mellitus, depression, nephrolithiasis, uterine polyps. PAST SURGICAL HISTORY: Significant for , D and C, tonsillectomy, uterine ablation, cholecystectomy and most recent as of last year, she had a surgical repair of incarcerated ventral hernia with mesh employment. FAMILY HISTORY: Noncontributory. SOCIAL HISTORY: She lives alone, fairly independent. She has one daughter who is very supportive. Her mom and sisters live nearby. She does not smoke or drink alcohol. She is a retired registered nurse. ALLERGIES: She is allergic to CEFTRIAXONE. MEDICATIONS: She is currently on following medications: She is on simvastatin 40 mg at bedtime, metoprolol tartrate 12.5 mg twice a day, lisinopril 2.5 mg once a day, Wellbutrin 150 mg once a day, Effexor 75 mg twice a day, potassium chloride 40 mEq daily, torsemide 60 mg daily, metformin 1000 mg with breakfast. She is on Lantus insulin 75 units at bedtime, Megace 20 mg daily, Nystatin powder applied topically twice a day and triamcinolone acetonide cream applied topically twice a day. REVIEW OF SYSTEMS: The patient denied any blurring of vision, cataract, glaucoma or macular degeneration. Denied any earache, tinnitus or sensorineural deafness. Denied any nosebleeds, stuffy nose or postnasal drip. Denied any sore throat, sore tongue, toothache, hoarseness of voice or difficulty swallowing. Denied any nausea, vomiting, diarrhea or constipation. Denied any hematemesis, melena or hematochezia. Denied any dysuria, frequency or hematuria. Did complain of fever up to 101.3. Denied any chest pain, shortness of breath, orthopnea or paroxysmal nocturnal dyspnea. Denied any cough, phlegm or hemoptysis. PHYSICAL EXAMINATION: GENERAL: On arrival to the Emergency Room, she looked well actually and was in no apparent respiratory distress. There was no pallor, jaundice, cyanosis, or thyromegaly. No jugular venous distension. VITAL SIGNS: Her heart rate was 114, blood pressure was 132/68, temperature was 99.1, respiratory rate was 16, and oxygen saturation was 98% on 2 liters of oxygen. HEAD, EYES, EARS, NOSE AND THROAT: Normocephalic, atraumatic. NECK: Supple. HEART: Showed normal first and second heart sounds. No gallop, rub or murmur. CHEST: Clear to auscultation. No crepitation or rhonchi. ABDOMEN: Distended, soft, nontender. No guarding or rigidity. No organomegaly. All hernial orifices intact. Bowel sounds normal. NEUROLOGIC: She was awake, alert, but very confused and disoriented to time and place; however, all her cranial nerves intact. She moves extremities without difficulty. According to the ER physician, he could not find any focus of infection when he examined her yesterday in the Emergency Room. LABORATORY DATA: Her lab work on admission showed a white cell count of 17,000; hemoglobin 15; hematocrit 45; MCV 93; and platelet count 243,000 with normal manual differential. Her chemistry showed serum sodium of 132, potassium 4.3, chloride 95, bicarbonate 28, anion gap of 9, BUN 16, creatinine 0.9, estimated GFR was 63 mL per minute. Her glucose was 175. Lactic acid was 2.2. Calcium was 9.1, magnesium was 1.6. Total bilirubin and alkaline phosphatase normal. AST, ALT are elevated. Her total protein was 7.5, albumin was 2.7. Her urinalysis showed the urine was yellow, cloudy with a pH of 5.5, specific gravity of more than 1.030. There was large amount of protein. The urine was negative for glucose, ketones, large amount of blood, negative for nitrite and bilirubin, negative for leukocyte esterase with 3-5 rbc's, 1-4 wbc's, and no bacteria. She has had acute abdomen series, which showed nonobstructive bowel pattern with moderate amount of fecal content throughout the colon. CT scan of the head showed the ventricles are normal in size and no intracranial hemorrhage, midline shift, or mass effect. Globes and optic nerves are unremarkable. Paranasal sinuses are grossly unremarkable and no acute bony changes. She did have a CT scan of the abdomen and pelvis, which showed that the patient has diffuse hepatic steatosis. No intrahepatic or extrahepatic biliary ductal dilatation. She is status post cholecystectomy. Borderline increase in size of retroperitoneal lymph nodes which remain nonenlarged by size criteria. She has a large ventral abdominal hernia measuring 9.4 cm at the neck containing nondilated loops of small bowel. Increase in size of the right adnexal cyst, now measuring 4.3 x 3.9 cm. Consideration will be given for cystic ovarian neoplasm such as serous cystadenoma. ASSESSMENT AND PLAN: The patient was admitted and was treated symptomatically. She was started on IV fluid and to repeat her lab work to see if there is any focus of infection that be explaining all her symptoms. We did actually send blood and urine for culture and sensitivity. JANET CALVIN MD DR: LEXIE/tiago JOB#: [id number] / [id number]
[2018-08-30 15:49] VITALS: BP 106/70
--- NOTE | 2018-08-30 16:30 | RAD ---
Right LOWER EXTREMITY ULTRASOUND WITH DOPPLER 08/30/2018 2:33 PM Clinical Information: Markedly swollen right lower extremity versus left lower extremity. Comparison: None. Technique: Multiple grayscale, color Doppler, and spectral Doppler sonographic images of the lower extremity venous structures were obtained. Findings: The right common femoral, femoral, and popliteal veins exhibit normal compression, respiratory phasicity, and augmentation. No intraluminal thrombi are identified. Posterior tibial vein is not well visualized. Greater saphenous vein is patent. Impression: 1. No evidence of deep venous thrombosis. Electronically signed by: Kelly Ramires MD (08/30/2018 4:27 PM) [id number]
[2018-08-30 19:10] VITALS: BP 97/55
[2018-08-30] MEDS: oxyCODONE IR 5 MG TABLET PO PRN (19:22)
[2018-08-30 21:11] VITALS: BP 110/66
[2018-08-30] MEDS: INSULIN GLARGINE 300 UNITS/3 ML INSULN.PEN. SQ SCH (21:13)
[2018-08-30 23:22] VITALS: BP 111/75
[2018-08-30] MEDS: VANCOMYCIN 2 GM in IV NORMAL SALINE 500ML 500 ML IV SCH (23:59)
--- NOTE | 2018-08-31 03:09 | CONS ---
DATE OF CONSULTATION: 08/29/2018 REFERRING PHYSICIAN: Dr. Amanda Stinson. REASON FOR CONSULTATION: Confusion and generalized weakness. HISTORY OF PRESENT ILLNESS: This is a 63-year-old right-handed female who was admitted through Emergency Room on account of intermittent confusion and generalized weakness. According to the patient, she was in bed last night and all of a sudden she found herself on the floor. She probably had a brief loss of consciousness; however, the patient was not able to get up of the floor. The patient stated she might have tripped by using a walker. She did not recall the fall, but since she came to she was not confused or disoriented. The patient was transferred by family to Emergency Room for further evaluation. According to the patient, she had a fall 3 weeks ago when she fell forward and hit her tongue. She denies loss of consciousness, bowel or bladder dysfunctions. Currently, she denies headaches, visual disturbances, nausea, vomiting, chest pain, shortness of breath or palpitation, dysarthria, dysphagia, but she complains of generalized weakness. The patient also has had chronic lower back pain. Initial nonenhanced head CT scan revealed no evidence of acute intracranial process. PAST MEDICAL HISTORY: Significant for morbid obesity, diabetes mellitus, on insulin, congestive heart failure, hyperlipidemia, hypertension, COPD, obstructive sleep apnea on CPAP, chronic lower back pain, depressions, and fatty liver. PAST SURGICAL HISTORY: Significant for tonsillectomy, cholecystectomy, abdominal surgery a year ago for obstructive bowel, x 2. SOCIAL HISTORY: The patient lives independently. She denies smoking, alcohol drinking, or illicit drug use. FAMILY HISTORY: Strongly positive for diabetes mellitus and hypertension in her sister and mother. CURRENT HOME MEDICATIONS: Megace 20 mg daily, potassium 40 mEq twice daily, magnesium 400 mg b.i.d., torsemide 60 mg p.o. daily, lisinopril 2.5 mg daily, Effexor XR 75 mg b.i.d., nystatin one application twice daily, metoprolol 12.5 mg b.i.d., insulin Lantus 75 units subcutaneously at bedtime. ALLERGIES: No known drug allergies. REVIEW OF SYSTEMS: A 10-point review of system was performed as mentioned above in history of present illness consistent with frequent falls, generalized weakness and intermittent confusion. PHYSICAL EXAMINATION: GENERAL: Obese female, not in acute distress. VITAL SIGNS: She weighs 157 kilos with BMI of 55.9. HEENT: Normocephalic, atraumatic, otherwise unremarkable. NECK: Supple. Negative for carotid bruit, lymphadenopathy or thyromegaly. LUNGS: Clear to A and P. CARDIOVASCULAR: Regular rate and rhythm, normal S1, S2. ABDOMEN: Soft. Bowel sounds positive. EXTREMITIES: Positive for pitting edema bilaterally. MENTAL STATUS: The patient is alert and oriented x3. Speech is fluent. There is no language dysfunction. The patient recalls 2/3 immediately and after 1 and 3 minutes. Judgment and abstract thinking are fair. The patient denies hallucination or delusion. CRANIAL NERVES: Visual lawrenec are full. The pupils are reactive to light and accommodation. The extraocular movements are intact. There is no nystagmus. There is no facial motor or sensory deficit. Hearing is intact bilaterally. The palate is elevated symmetrically. Sternocleidomastoid muscles are powerful bilaterally. The patient shrugs her shoulders symmetrically and protrudes her tongue in the midline without fasciculation or atrophy. MOTOR: No focal muscle bulk was seen. The tone is normal. The strength is 5/5 in the upper extremities and 4/5 in the lower extremities. Sensory examination revealed normal pinprick to light touch senses throughout. Deep tendon reflexes were symmetric and hypoactive with absent Achilles responses. Gait: The stance is steady. The patient uses a walker for ambulation. LABORATORY DATA: CBC revealed white blood cells of 11.6 thousand, hemoglobin 14.1, hematocrit 42.3, platelet count 239,000. Chemistry revealed sodium 132, potassium 4, chloride 96, CO2 27, BUN 13, creatinine 0.9, glucose 210, calcium is 9.1. Liver enzymes are elevated probably due to fatty liver. AST is high at 211 and ALT is high at 69. According to her daughter, the patient has never been alcoholic. Urinalysis is negative for urinary tract infections. Abdominal CT, acute abdomen series revealed nonobstructive bowel gas pattern with moderate amount of fecal content, otherwise unremarkable. IMPRESSION: 1. Frequent falls, probably multifactorial, rule out syncope versus nonconvulsive seizure, and possible orthostatic hypertension versus cardiac arrhythmia. 2. Multiple medical problems include morbid obesity, obstructive sleep apnea, on CPAP, hypertension, hyperlipidemia, fatty liver, chronic low back pain, mild hyponatremia. RECOMMENDATIONS: 1. Continue with current home medication. 2. Physical therapy evaluation. 3. We will arrange for EEG on outpatient basis to rule out seizure versus encephalopathy. M Tanesha AYERS MD DR: EULOGIO/tigao JOB#: [id number] / [id number]
--- NOTE | 2018-08-31 05:11 | PN ---
DATE: SUBJECTIVE: The patient was admitted yesterday with altered mental status. She also had fever, but without any obvious focus of infection; however, this morning, she complained of pain in the dorsum aspect of the right foot and examination of her right lower extremity showed that she has obvious cellulitis involving her right lower extremity with markedly swollen right lower extremity that is red and hot to touch. Most likely, ____ for her leukocytosis and fever with altered mental status. PHYSICAL EXAMINATION: GENERAL: When I examined her this afternoon, she somewhat flushed, but there was no pallor, jaundice, cyanosis or thyromegaly. No jugular venous distension. No limb edema. VITAL SIGNS: Her heart rate was 93, blood pressure was 92/61, temperature was 99.2, respiratory rate was 14 and oxygen saturation was 96%. HEAD, EYES, EARS, NOSE AND THROAT: Showed normocephalic, atraumatic. NECK: Supple. HEART: Showed normal first and second heart sounds with no gallop, rub or murmur. CHEST: Clear to auscultation. No crepitation or rhonchi. ABDOMEN: Distended, soft with a large ventral hernia. No guarding or rigidity. No organomegaly. All hernial orifice intact. Bowel sounds normal. NEUROLOGIC: She was awake, alert, although less confused compared to yesterday. All her cranial nerves intact. She moves extremities without difficulty. Examination of the right lower extremity compared to the left showed it is markedly swollen, erythematous, warm to touch with marked swelling and tenderness over the dorsum of the right foot. LABORATORY DATA: Her lab work this morning showed that her white cell count slightly down to 11,600, hemoglobin 14, hematocrit 42, MCV 93 and platelet count of 239,000 with normal manual differential. Her chemistry showed that her serum sodium was 132, potassium 4, chloride 96, bicarbonate 27, anion gap of 9, BUN 13, creatinine 0.9, estimated GFR was 63 mL per minute. Her glucose was 210, calcium was 9.1, magnesium was 1.6. Total bilirubin and alkaline phosphatase is normal. Her AST, ALT continued to be elevated and higher than yesterday. Her total protein was 7.4, albumin was 2.5. ASSESSMENT: In summary, this is a 63-year-old female patient who was admitted with altered mental status. She has also fever and was found to have right lower extremity cellulitis. She has a multitude of other medical problems including type 2 diabetes mellitus, hypertension, hyperlipidemia, morbid obesity, obstructive sleep apnea. She is known to have depression, nephrolithiasis, uterine polyps and congestive heart failure. PLAN: We have already sent urine for culture and sensitivity. We will start her on vancomycin and Zosyn and I have arranged for her to have a PICC line. I also will arrange for her to have a venous Doppler ultrasound of her right lower extremity. It seems to be more swollen than the left. JANET CALVIN MD DR: LEXIE/tiago JOB#: [id number] / [id number]
[2018-08-31] MEDS: PIPERACILLIN/TAZOBACTAM 4.5 GM in IV NORMAL SALINE 50ML 50 ML IV SCH ×3 (05:29→21:32)
[2018-08-31 05:38] VITALS: BP 122/71
[2018-08-31 06:35] LABS: HEMATOCRIT 36.7 % (36.0-47.0); HEMOGLOBIN 12.2 g/dL (12.0-15.5); RED BLOOD COUNT 3.91 x10^6/uL (3.50-5.40); RED CELL DISTRIBUTION WIDTH 13.3 % (11.5-14.5); WHITE BLOOD COUNT 8.8 x10^3/uL (4.0-11.0)
[2018-08-31 06:50] LABS: ALBUMIN 2.1 g/dL (3.4-5.0); ALBUMIN/GLOBULIN RATIO 0.5 (1.0-1.7); CALCIUM 8.4 mg/dL (8.5-10.1); CREATININE 0.7 mg/dL (0.6-1.0); GFR 84.8; POTASSIUM 4.6 mmol/L (3.5-5.1); TOTAL BILIRUBIN 0.6 mg/dL (0.2-1.0); TOTAL PROTEIN 6.5 g/dL (6.4-8.2)
[2018-08-31] MEDS ORDERED: MAGNESIUM SULFATE 2GM 50 ML IV ONE (08:00)
[2018-08-31] MEDS: TORSEMIDE 20 MG TABLET. PO SCH (09:00)
[2018-08-31] MEDS: NYSTATIN TOPICAL POWDER 15GM BOTTLE. TP SCH ×2 (09:00→21:28)
[2018-08-31] MEDS: POTASSIUM CHLORIDE 20 MEQ TABLET.ER. PO SCH ×2 (09:32→21:30)
[2018-08-31] MEDS: MAGNESIUM OXIDE 400 MG TABLET PO SCH ×2 (09:32→21:30)
[2018-08-31] MEDS: LACTOBACILLUS RHAMNOSUS GG 1 CAPSULE. PO SCH ×2 (09:33→21:30)
[2018-08-31] MEDS: LISINOPRIL 2.5 MG TABLET PO SCH (09:33)
[2018-08-31] MEDS: METOPROLOL TART IMMED RELEASE 25 MG TABLET PO SCH ×2 (09:34→21:31)
[2018-08-31] MEDS: MEGESTROL 40 MG TABLET. PO SCH (09:35)
[2018-08-31] MEDS: oxyCODONE IR 5 MG TABLET PO PRN ×2 (09:36→15:54)
[2018-08-31] MEDS: VENLAFAXINE XR 37.5 MG CAP.ER.24H. PO SCH ×2 (09:37→21:29)
--- NOTE | 2018-08-31 10:09 | PN ---
DATE: SUBJECTIVE: The patient continues to have pain confined to the right foot. She denies any recurrent dizziness or fainting spells. She denies chest pain, shortness of breath or palpitation. The patient refused to take furosemide because she has to go to bathroom frequently after that. She wanted to take furosemide tomorrow. OBJECTIVE: GENERAL: Morbidly obese female, not in acute distress. VITAL SIGNS: Blood pressure 122/71, respiratory rate 24, pulse is 50 and regular, oxygen saturation is 95% on CPAP/BiPAP, temperature 98.3. HEENT: Normocephalic, atraumatic, otherwise unremarkable. NECK: Supple. Negative for carotid bruit, lymphadenopathy or thyromegaly. LUNGS: With diminished breath sounds bilaterally, no crackles or wheezing. CARDIOVASCULAR: Regular rate and rhythm, normal S1, S2. EXTREMITIES: Markedly swelling and redness and tenderness over the dorsum aspect of the right foot consistent with cellulitis. NEUROLOGIC: Normal mental status and intact cranial nerves. There is no focal motor or sensory deficit. Deep tendon reflexes were hypoactive with absent Achilles responses. Gait not tested. LABORATORY DATA: CBC revealed white blood cells of 8.8 thousand, hemoglobin 12.2, hematocrit 36.7, platelet count 193,000. Chemistry revealed sodium of 135, potassium 4.6, chloride 101, CO2 of 27, BUN 9, creatinine 0.7, glucose 259, calcium 8.4. IMPRESSION: 1. Right foot cellulitis. 2. Frequent falls, possible syncope. 3. Multiple medical problems include morbid obesity, obstructive sleep apnea, hyperlipidemia, hypertension, chronic lower back pain, diabetes mellitus. RECOMMENDATIONS: 1. Continue with current management initiated by Dr. Stinson for cellulitis of right foot. 2. Continue with current management. 3. Aggressive weight loss. M Tanesha AYERS MD DR: EULOGIO/tiago JOB#: [id number] / [id number]
[2018-08-31 10:36] VITALS: BP 119/71
[2018-08-31] MEDS ORDERED: BUPR300T3 PO (10:50)
[2018-08-31] MEDS ORDERED: DEXTROSE 50% 25 GM / 50ML DISP.SYRIN. IV PRN (12:15)
[2018-08-31] MEDS: VANCOMYCIN 2 GM in IV NORMAL SALINE 500ML 500 ML IV SCH (12:35)
[2018-08-31] MEDS: ENOXAPARIN ** NOTE DOSE ** SYRINGE SQ SCH ×2 (12:35→21:29)
[2018-08-31] MEDS: INSULIN LISPRO 300 UNITS/3 ML INSULN.PEN. SQ SCH ×2 (12:38→17:56)
--- NOTE | 2018-08-31 14:29 | PN ---
DATE: SUBJECTIVE: Ms. Abdullahi is resting slightly propped up in bed on her BiPAP machine sleeping comfortably. She is complaining of pain. Her right foot seems to be more swollen and erythematous, markedly tender to touch, although she is afebrile and her white cell count anything is coming down from 17,000 to 8800. PHYSICAL EXAMINATION: GENERAL: When I examined her this morning, she looked well and was clearly in no apparent respiratory distress. No pallor, jaundice, cyanosis, or thyromegaly. No jugular venous distention, but bilateral lower limb edema, more so on the right than left. VITAL SIGNS: Her heart rate was 109, blood pressure 119/72, temperature was 98.2, respiratory rate 22, and oxygen saturation was 96% on 2 liters of oxygen. HEAD, EYES, EARS, NOSE AND THROAT: Showed normocephalic, atraumatic. NECK: Supple. HEART: Showed normal first and second heart sounds. No gallop, rub or murmur. CHEST: Clear to auscultation. No crepitation or rhonchi. ABDOMEN: Markedly distended, soft, nontender. NEUROLOGIC: She is sleepy, but arousable. All cranial nerves are intact. Moves extremities without difficulty. Examination of her right lower extremity seemed to be more swollen, tender and erythematous compared to yesterday. Her intake and output are incompletely recorded. LABORATORY DATA: Her lab work this morning showed a white cell count of 8800, hemoglobin 12, hematocrit 36, MCV 94 and platelet count 193,000. Serum sodium was 155, potassium 4.6, chloride 101, bicarbonate 27, anion gap of 7, BUN 9, creatinine 0.7, estimated GFR was 85 mL per minute. Her glucose was 159. Calcium was 8.4, magnesium was 1.7. Total bilirubin and alkaline phosphatase normal. AST and ALT are slightly elevated. Total protein was 6.5, albumin was 2.1. ASSESSMENT: 1. Altered mental status, resolving. The patient has fever, found to have leukocytosis and right lower extremity cellulitis for which she is now on IV antibiotic in the form of Zosyn and vancomycin. 2. The patient has multiple other medical problems including: A. Type 2 diabetes mellitus. B. Hypertension. C. Hyperlipidemia. D. Morbid obesity. E. Obstructive sleep apnea, on CPAP. F. Depression. G. Nephrolithiasis. PLAN: My plan is to continue with IV vancomycin and Zosyn. She has had her PICC line placed and Doppler ultrasound showed no evidence of right lower extremity cellulitis. We will arrange for a CT scan of the right lower extremity as her right foot seems to be more swollen, erythematous and tender to touch. Meanwhile, we will continue with pain management and IV antibiotic and decide on further management accordingly. JANET CALVIN MD DR: LEXIE/tiago JOB#: [id number] / [id number]
[2018-08-31 15:15] VITALS: BP 131/82
--- NOTE | 2018-08-31 15:44 | RAD ---
Exam performed: CT scan right ankle. HISTORY: Painful swelling right foot. No injury. DATE OF SERVICE: 08/31/2018. COMPARISON: None available TECHNIQUE: Contiguous helical acquisitions are obtained through the right ankle without IV contrast. Sagittal and coronal reformatted images are obtained and reviewed. FINDINGS: The ankle mortise is preserved. The intertarsal joints are preserved. There is no acute fracture or dislocation. There is extensive soft tissue swelling around the lower leg and ankle joint involving the foot. No abnormal fluid collection or mass lesion is identified. The flexor, extensor and peroneal tendons appear grossly intact. The Achilles tendon is preserved. Incidental phleboliths seen in the soft tissues of the neck. IMPRESSION: Diffuse soft tissue swelling involving the right foot. No underlying bony abnormality seen. PQRS Compliance Statement: One or more of the following individualized dose reduction techniques were utilized for this examination: 1. Automated exposure control 2. Adjustment of the mA and/or kV according to patient size 3. Use of iterative reconstruction technique Electronically signed by: Elizabeth Marr MD (08/31/2018 3:42 PM) [facility]
[2018-08-31 19:20] VITALS: BP 125/68
[2018-08-31] MEDS: TRIAMCINOLONE ACETONIDE 0.1% TOPICAL CREAM 15GM TUBE. TP SCH (21:28)
[2018-08-31] MEDS: SIMVASTATIN 40 MG TABLET. PO SCH (21:29)
[2018-08-31] MEDS: INSULIN GLARGINE 300 UNITS/3 ML INSULN.PEN. SQ SCH (21:34)
[2018-08-31 23:46] LABS: VANC TR 13.8 mcg/mL (10.0-20.0)
[2018-09-01] MEDS: VANCOMYCIN 2 GM in IV NORMAL SALINE 500ML 500 ML IV SCH ×3 (00:04→23:24)
[2018-09-01 00:10] VITALS: BP 124/58
[2018-09-01] MEDS: VANCOMYCIN PER PHARMACY MC PRN (01:12)
[2018-09-01] MEDS: PIPERACILLIN/TAZOBACTAM 4.5 GM in IV NORMAL SALINE 50ML 50 ML IV SCH ×3 (05:04→21:38)
[2018-09-01 06:00] VITALS: BP 128/75
[2018-09-01 06:34] LABS: HEMATOCRIT 36.2 % (36.0-47.0); HEMOGLOBIN 11.9 g/dL (12.0-15.5); RED BLOOD COUNT 3.82 x10^6/uL (3.50-5.40); RED CELL DISTRIBUTION WIDTH 13.7 % (11.5-14.5); WHITE BLOOD COUNT 9.2 x10^3/uL (4.0-11.0)
[2018-09-01 06:44] LABS: C REACTIVE PROTEIN 109.6 mg/L (0-3.3); CALCIUM 8.4 mg/dL (8.5-10.1); CREATININE 0.6 mg/dL (0.6-1.0); GFR 101.3; MAGNESIUM 1.8 mg/dL (1.8-2.4); POTASSIUM 4.5 mmol/L (3.5-5.1)
[2018-09-01] MEDS: ENOXAPARIN ** NOTE DOSE ** SYRINGE SQ SCH ×2 (08:08→20:56)
[2018-09-01] MEDS: METOPROLOL TART IMMED RELEASE 25 MG TABLET PO SCH ×2 (08:09→21:00)
[2018-09-01] MEDS: TORSEMIDE 20 MG TABLET. PO SCH (08:10)
[2018-09-01] MEDS: POTASSIUM CHLORIDE 20 MEQ TABLET.ER. PO SCH ×2 (08:11→20:58)
[2018-09-01] MEDS: MAGNESIUM OXIDE 400 MG TABLET PO SCH ×2 (08:11→20:57)
[2018-09-01] MEDS: LACTOBACILLUS RHAMNOSUS GG 1 CAPSULE. PO SCH ×2 (08:11→20:57)
[2018-09-01] MEDS: LISINOPRIL 2.5 MG TABLET PO SCH (08:11)
[2018-09-01] MEDS: buPROPion XL 300 MG TAB.ER.24H. PO SCH (08:13)
[2018-09-01] MEDS: metFORMIN 500 MG TABLET PO SCH (08:13)
[2018-09-01] MEDS: VENLAFAXINE XR 37.5 MG CAP.ER.24H. PO SCH ×2 (08:13→20:57)
[2018-09-01] MEDS: MEGESTROL 40 MG TABLET. PO SCH (08:13)
[2018-09-01] MEDS: NYSTATIN TOPICAL POWDER 15GM BOTTLE. TP SCH ×2 (08:14→20:56)
[2018-09-01] MEDS: TRIAMCINOLONE ACETONIDE 0.1% TOPICAL CREAM 15GM TUBE. TP SCH ×2 (08:14→21:00)
[2018-09-01] MEDS: INSULIN LISPRO 300 UNITS/3 ML INSULN.PEN. SQ SCH ×3 (08:24→17:00)
[2018-09-01] MEDS: oxyCODONE IR 5 MG TABLET PO PRN (10:26)
[2018-09-01 10:51] VITALS: BP 136/83
--- NOTE | 2018-09-01 13:34 | PN ---
DATE: SUBJECTIVE: The patient continues to have pain and swelling of the right foot. She denies headaches, visual disturbances, dizziness or any other neurological complaints. OBJECTIVE: GENERAL: Obese female, not in acute distress. VITAL SIGNS: Blood pressure 128/75, respiratory rate is 20, pulse is 109, temperature is 97.6, oxygen saturation 98% on 2 liters via nasal cannula. HEENT: Normocephalic, atraumatic, otherwise unremarkable. NECK: Supple. Negative for carotid bruit, lymphadenopathy or thyromegaly. LUNGS: With diminished breath sounds bilaterally. CARDIOVASCULAR: Regular rate and rhythm, normal S1, S2. ABDOMEN: Soft. Bowel sounds positive. EXTREMITIES: Positive for warmth, tenderness and swelling and erythema of the right foot. NEUROLOGIC: Normal mental status and intact cranial nerves. There is no focal motor deficit. Sensory examination revealed diminished pinprick and light touch senses in patchy distributions in distal lower extremities. Deep tendon reflexes were symmetric and hypoactive with absent Achilles responses. Gait not tested. DIAGNOSTIC DATA: CT of the right lower extremity revealed evidence of swelling of the soft tissue of the right foot without evidence of bone lesion or osteomyelitis. LABORATORY DATA: White blood cells of 9200, hemoglobin 11.9, hematocrit 36.2, platelet count 204,000. Chemistry revealed sodium 136, potassium 4.5, chloride 103, CO2 of 30, BUN 9, creatinine 0.6, glucose 214, calcium 8.4 and CRP is high at 109.6. IMPRESSION: 1. Acute cellulitis of the right foot, no evidence of osteomyelitis. 2. Multiple medical problems include morbid obesity, chronic obstructive pulmonary disease, hypertension, chronic low back pain, diabetes mellitus. RECOMMENDATIONS: Continue with current management initiated by Dr. Stinson. The patient is neurologically stable. M Tanesha AYERS MD DR: EULOGIO/tiago JOB#: [id number] / [id number]
[2018-09-01 15:30] VITALS: BP 115/48
[2018-09-01] MEDS ORDERED: CHOLECALCIFEROL (VITAMIN D3) 50,000 UNIT CAPSULE PO SCH (15:30)
[2018-09-01] MEDS: IBUPROFEN 800 MG TABLET. PO PRN (16:47)
[2018-09-01] MEDS: INSULIN NPH/REG INSULIN 70/30 300 UNITS/3 ML INSULN.PEN. SQ SCH (17:39)
[2018-09-01 19:00] VITALS: BP 112/53
[2018-09-01] MEDS: INSULIN GLARGINE 300 UNITS/3 ML INSULN.PEN. SQ SCH (20:55)
[2018-09-01] MEDS: SIMVASTATIN 40 MG TABLET. PO SCH (20:58)
[2018-09-01 23:20] VITALS: BP 115/58
--- NOTE | 2018-09-02 02:16 | PN ---
DATE: SUBJECTIVE: The patient is sitting on the edge of the bed comfortably, in no apparent distress. She continued to complain of pain in her right foot, although much better than yesterday. It is swollen, red, but she is able now to get out of the bed and walk to the bathroom without any difficulty. LABORATORY DATA: Her blood sugar, however, still suboptimally controlled at home. She takes Humalog 70/30, she takes 6 units before meals, together with the Lantus and 1000 mg of metformin twice a day, severe allergy ____. PHYSICAL EXAMINATION: GENERAL: When I examined her this afternoon, she was sitting on the edge of the bed, no apparent distress, slightly pale, but no jaundice, cyanosis, or thyromegaly. No jugular venous distension. No limb edema. VITAL SIGNS: Her heart rate was 114, blood pressure was 136/83, temperature was 97.5, respiratory rate was 18 and oxygen saturation was 94% on 2 liters of oxygen. HEAD, EYES, EARS, NOSE AND THROAT: Showed normocephalic, atraumatic. NECK: Supple. HEART: Showed normal first and second heart sounds. No gallop, rub or murmur. CHEST: Clear to auscultation. No crepitation or rhonchi. ABDOMEN: Distended, soft, nontender. No guarding or rigidity. No organomegaly. All hernial orifice intact. Bowel sounds normal. NEUROLOGIC: She is definitely awake, alert, responding appropriately. All cranial nerves intact. She moves extremities without difficulty. She ambulates without assistance or assistive devices. Her right lower extremity continued to be red, markedly swollen compared to left, although the venous Doppler ultrasound of right lower extremity was negative for DVT. Her intake over the last 24 hours was 2785, no output was recorded. As of this morning, her white cell count was 9200, hemoglobin 12, hematocrit 36, MCV 95, and platelet count 204,000. Her chemistry showed a serum sodium 136, potassium 4.5, chloride 103, bicarbonate 30, anion gap of 3, BUN 18, creatinine 0.6, estimated GFR was 101, glucose was 114, calcium was 8.4, magnesium was 1.8 and C-reactive protein was 109 mg/dL. ASSESSMENT: 1. Altered mental status, resolving. If the patient has fever, found to have leukocytosis, right lower extremity cellulitis, she is now on IV antibiotic in the form of Zosyn and vancomycin. 2. The patient has multiple other medical problems including: A. Type 2 diabetes mellitus that seems to be suboptimally controlled. B. Hypertension. C. Hyperlipidemia. D. Morbid obesity. E. Obstructive sleep apnea, on CPAP F. Depression. G. Nephrolithiasis. PLAN: To continue with IV vancomycin and Zosyn. Her blood sugar is suboptimally controlled, so we will switch her back on her Humalog 70/30 insulin. She normally takes about 60 units before meals. We will start with 30 and will increase gradually. A CT scan of her right lower extremity was negative for any drainable fluid collection. JANET CALVIN MD DR: LEXIE/tiago JOB#: [id number] / [id number]
[2018-09-02] MEDS: PIPERACILLIN/TAZOBACTAM 4.5 GM in IV NORMAL SALINE 50ML 50 ML IV SCH ×3 (05:14→22:01)
[2018-09-02] MEDS: IBUPROFEN 800 MG TABLET. PO PRN ×2 (05:57→22:55)
[2018-09-02 06:09] VITALS: BP 126/69
[2018-09-02] MEDS ORDERED: ALTEPLASE 2 MG VIAL INT CAT ONE (08:15)
[2018-09-02] MEDS: ENOXAPARIN ** NOTE DOSE ** SYRINGE SQ SCH ×2 (08:50→21:05)
[2018-09-02] MEDS: MAGNESIUM OXIDE 400 MG TABLET PO SCH ×2 (08:51→21:00)
[2018-09-02] MEDS: LISINOPRIL 2.5 MG TABLET PO SCH (08:51)
[2018-09-02] MEDS: MEGESTROL 40 MG TABLET. PO SCH (08:51)
[2018-09-02] MEDS: POTASSIUM CHLORIDE 20 MEQ TABLET.ER. PO SCH ×2 (08:51→21:02)
[2018-09-02] MEDS: VENLAFAXINE XR 37.5 MG CAP.ER.24H. PO SCH ×2 (08:51→21:08)
[2018-09-02] MEDS: NYSTATIN TOPICAL POWDER 15GM BOTTLE. TP SCH ×2 (08:51→21:05)
[2018-09-02] MEDS: metFORMIN 500 MG TABLET PO SCH (08:52)
[2018-09-02] MEDS: TORSEMIDE 20 MG TABLET. PO SCH ×2 (08:52→09:00)
[2018-09-02] MEDS: LACTOBACILLUS RHAMNOSUS GG 1 CAPSULE. PO SCH ×2 (08:52→21:00)
[2018-09-02] MEDS: METOPROLOL TART IMMED RELEASE 25 MG TABLET PO SCH ×2 (08:52→21:02)
[2018-09-02] MEDS: buPROPion XL 300 MG TAB.ER.24H. PO SCH (08:54)
[2018-09-02] MEDS: TRIAMCINOLONE ACETONIDE 0.1% TOPICAL CREAM 15GM TUBE. TP SCH ×2 (08:54→21:00)
[2018-09-02] MEDS: INSULIN LISPRO 300 UNITS/3 ML INSULN.PEN. SQ SCH ×3 (09:00→17:00)
[2018-09-02] MEDS: INSULIN NPH/REG INSULIN 70/30 300 UNITS/3 ML INSULN.PEN. SQ SCH ×3 (09:02→17:43)
[2018-09-02 11:05] VITALS: BP 120/72
[2018-09-02] MEDS: oxyCODONE IR 5 MG TABLET PO PRN (12:02)
[2018-09-02] MEDS: VANCOMYCIN 2 GM in IV NORMAL SALINE 500ML 500 ML IV SCH (12:03)
[2018-09-02 12:13] LABS: HEMATOCRIT 38.1 % (36.0-47.0); HEMOGLOBIN 12.6 g/dL (12.0-15.5); RED BLOOD COUNT 4.02 x10^6/uL (3.50-5.40); RED CELL DISTRIBUTION WIDTH 13.3 % (11.5-14.5); WHITE BLOOD COUNT 10.5 x10^3/uL (4.0-11.0)
[2018-09-02 12:23] LABS: CALCIUM 8.9 mg/dL (8.5-10.1); CREATININE 0.8 mg/dL (0.6-1.0); GFR 72.7; POTASSIUM 4.7 mmol/L (3.5-5.1)
[2018-09-02 15:38] VITALS: BP 132/68
[2018-09-02 20:00] VITALS: BP 137/63
[2018-09-02] MEDS: INSULIN GLARGINE 300 UNITS/3 ML INSULN.PEN. SQ SCH (21:04)
[2018-09-02] MEDS: SIMVASTATIN 40 MG TABLET. PO SCH (21:09)
--- NOTE | 2018-09-02 22:23 | PN ---
DATE: SUBJECTIVE: The patient continues to have swelling and some pain confined to the right distal lower extremity and foot. OBJECTIVE: GENERAL: Morbidly obese female, not in acute distress. VITAL SIGNS: Blood pressure 120/72, respiratory rate 22, pulse is 88 and regular, temperature 98.3, oxygen saturation 97% on 2 liters by nasal cannula. HEENT: Normocephalic, atraumatic, otherwise unremarkable. NECK: Supple. Negative for carotid bruit, lymphadenopathy or thyromegaly. LUNGS: Clear to A and P. CARDIOVASCULAR: Regular rate and rhythm, normal S1, S2. ABDOMEN: Soft. Bowel sounds positive. EXTREMITIES: Positive for edema and cellulitis confined to the right foot. There are 2 regimen toes area, one in the right foot and the other one over the lateral aspect of the right lower extremity below the knee. Soft tissue swelling of the right foot is somewhat less compared to that yesterday. The patient moves legs without significant pain. NEUROLOGICAL: Normal mental status and intact cranial nerves. There is no focal motor deficit. Sensory examination revealed diminished pinprick and light touch senses in patchy distributions in both distal lower extremities. Deep tendon reflexes were symmetric with absent Achilles responses bilaterally. Gait not tested. LABORATORY DATA: CBC revealed white blood cells of 10.5 thousand, hemoglobin 12.6, hematocrit 38.1, platelet count 303,000. Chemistry revealed sodium of 137, potassium 4.6, CO2 33, BUN 14, creatinine 0.8, glucose 221, calcium 8.9. IMPRESSION: 1. Acute cellulitis of the right foot, no evidence of osteomyelitis. 2. Multiple medical problems include morbid obesity, chronic obstructive pulmonary disease, hypertension, chronic low back pain and diabetes mellitus. RECOMMENDATIONS: 1. Continue with current management initiated by Dr. Stinson. 2. Aggressive weight loss. The patient is neurologically stable. M Tanesha AYERS MD DR: EULOGIO/tiago JOB#: [id number] / [id number]
[2018-09-03] MEDS: VANCOMYCIN 2 GM in IV NORMAL SALINE 500ML 500 ML IV SCH ×2 (00:01→12:00)
--- NOTE | 2018-09-03 04:00 | PN ---
DATE: 09/02/2018 SUBJECTIVE: The patient is resting slightly propped up in bed, sleeping comfortably with CPAP machine. On questioning her, she stated the pain is much less in her right lower extremity. The redness and swelling has largely subsided. We plan to discharge her home today. Unfortunately, her daughter is leaving the town and our [employer] is planning to see if we can discharge her to a half-way facility that accepts her insurance. PHYSICAL EXAMINATION: GENERAL: When I examined her this morning, she looked well and was clearly in no apparent respiratory distress, slightly pale, but no jaundice, cyanosis, or thyromegaly. No jugular venous distention. No limb edema. VITAL SIGNS: Her heart rate was 88, blood pressure 120/72, temperature was 98.3, respiratory rate was 22 and oxygen saturation was 97%. HEAD, EYES, EARS, NOSE, AND THROAT: Showed normocephalic, atraumatic. NECK: Supple. HEART: Showed normal first and second heart sounds. No gallop, rub or murmur. CHEST: Clear to auscultation. No crepitation or rhonchi. ABDOMEN: Distended, soft, nontender. NEUROLOGIC: She was awake, alert, responding appropriately. All cranial nerves intact. She moves extremities without difficulty. The redness and swelling of her right lower extremity has largely subsided. Her intake was 2000, no output was recorded. LABORATORY DATA: Her lab work this morning showed that her blood sugar continued to be suboptimally controlled. Her white cell count was 9200, hemoglobin 11, hematocrit 36, MCV 95, and platelet count 204,000. Her most recent chemistry showed a BUN of 8, creatinine 0.6. ASSESSMENT: 1. Altered mental status, resolving. The patient has fever and found to have leukocytosis and right lower extremity cellulitis. She is now on IV antibiotic in the form of Zosyn and vancomycin. The redness and swelling has largely subsided. So far, her blood cultures are negative. 2. The patient has multiple other medical problems including: A. Type 2 diabetes mellitus, seems to be suboptimally controlled. B. Hypertension. C. Hyperlipidemia. D. Morbid obesity. E. Obstructive sleep apnea, on CPAP. F. Depression. G. Nephrolithiasis. PLAN: To continue with IV antibiotic for now. I will increase her insulin to 60 units before meals. Repeat all her lab works tomorrow and if she remains stable, she can be discharged and we will discharge her to a half-way facility if she was accepted. JANET CALVIN MD DR: LEXIE/tiago JOB#: [id number] / [id number]
[2018-09-03 05:45] LABS: HEMATOCRIT 35.4 % (36.0-47.0); HEMOGLOBIN 11.7 g/dL (12.0-15.5); RED BLOOD COUNT 3.76 x10^6/uL (3.50-5.40); RED CELL DISTRIBUTION WIDTH 13.5 % (11.5-14.5); WHITE BLOOD COUNT 10.6 x10^3/uL (4.0-11.0)
[2018-09-03 05:51] LABS: CALCIUM 8.7 mg/dL (8.5-10.1); CREATININE 0.8 mg/dL (0.6-1.0); GFR 72.7; POTASSIUM 4.4 mmol/L (3.5-5.1)
[2018-09-03] MEDS: PIPERACILLIN/TAZOBACTAM 4.5 GM in IV NORMAL SALINE 50ML 50 ML IV SCH ×3 (06:04→21:34)
[2018-09-03 06:10] VITALS: BP 114/70
[2018-09-03] MEDS: INSULIN LISPRO 300 UNITS/3 ML INSULN.PEN. SQ SCH ×3 (08:00→17:00)
[2018-09-03] MEDS: POTASSIUM CHLORIDE 20 MEQ TABLET.ER. PO SCH ×2 (08:45→20:45)
[2018-09-03] MEDS: IBUPROFEN 800 MG TABLET. PO PRN (08:46)
[2018-09-03] MEDS: LACTOBACILLUS RHAMNOSUS GG 1 CAPSULE. PO SCH ×2 (08:46→20:45)
[2018-09-03] MEDS: VENLAFAXINE XR 37.5 MG CAP.ER.24H. PO SCH ×2 (08:46→20:45)
[2018-09-03] MEDS: LISINOPRIL 2.5 MG TABLET PO SCH (08:47)
[2018-09-03] MEDS: MAGNESIUM OXIDE 400 MG TABLET PO SCH ×2 (08:47→20:45)
[2018-09-03] MEDS: MEGESTROL 40 MG TABLET. PO SCH (08:47)
[2018-09-03] MEDS: METOPROLOL TART IMMED RELEASE 25 MG TABLET PO SCH ×2 (08:48→20:45)
[2018-09-03] MEDS: metFORMIN 500 MG TABLET PO SCH (08:49)
[2018-09-03] MEDS: INSULIN NPH/REG INSULIN 70/30 300 UNITS/3 ML INSULN.PEN. SQ SCH ×3 (08:54→17:17)
[2018-09-03] MEDS: buPROPion XL 300 MG TAB.ER.24H. PO SCH (08:55)
[2018-09-03] MEDS: ENOXAPARIN ** NOTE DOSE ** SYRINGE SQ SCH ×2 (08:55→20:46)
[2018-09-03] MEDS: TORSEMIDE 20 MG TABLET. PO SCH (09:00)
[2018-09-03 10:39] VITALS: BP 124/75
[2018-09-03 12:22] LABS: VANC TR 24.2 mcg/mL (10.0-20.0)
[2018-09-03] MEDS: VANCOMYCIN PER PHARMACY MC PRN (14:12)
[2018-09-03 19:34] VITALS: BP 130/72
[2018-09-03] MEDS: oxyCODONE IR 5 MG TABLET PO PRN (20:44)
[2018-09-03] MEDS: SIMVASTATIN 40 MG TABLET. PO SCH (20:45)
--- NOTE | 2018-09-03 20:47 | PN ---
DATE: 09/03/2018 SUBJECTIVE: The patient is resting slightly propped up in bed, in no apparent respiratory distress. She is awake, alert. Denied any complaint except slight pain in her right foot that continues to be somewhat swollen, but most of the redness has largely subsided. She has been up and about and the patient is stable to be discharged to a alf facility. OBJECTIVE: GENERAL: When I examined her this morning, she looked well and was clearly in no apparent respiratory distress, slightly pale, but no jaundice, cyanosis, or thyromegaly. No jugular venous distension. She has bilateral limb edema, more so on the right than left. VITAL SIGNS: Her heart rate was 90, blood pressure 124/75, temperature was 98.3, respiratory rate was 22 and oxygen saturation was 96% on 2 liters of oxygen. HEAD, EYES, EARS, NOSE AND THROAT: Showed normocephalic, atraumatic. NECK: Supple. HEART: Showed normal first and second heart sounds. No gallop, rub or murmur. CHEST: Clear to auscultation. No crepitation or rhonchi. ABDOMEN: Hugely distended, soft, nontender. NEUROLOGIC: She is awake, alert, responding appropriately. All cranial nerves intact. She moves extremities without difficulty. Her intake was 1600, no output was recorded. LABORATORY DATA: Her lab work this morning showed a white cell count of 10,600, hemoglobin 11.7, hematocrit 35, MCV 94 and platelet count of 336,000. Her chemistry showed a serum sodium 140, potassium 4.4, chloride 103, bicarbonate 33, anion gap of 4, BUN 14, creatinine 0.8, estimated GFR was 73 mL per minute. Her glucose was 99, calcium was 8.7. So far blood cultures are negative. ASSESSMENT: 1. Altered mental status, resolved. On arrival, she had fever and found to have leukocytosis and right lower extremity cellulitis. She continues to be on IV antibiotic in the form of Zosyn and vancomycin. The redness and swelling has largely subsided. So far, her blood cultures are negative. 2. The patient has multiple other medical problems including: A. Type 2 diabetes mellitus, seems to be much better controlled after we started her back on Humulin 70/30. B. Hypertension. C. Hyperlipidemia. D. Morbid obesity. E. Obstructive sleep apnea, on CPAP. F. Depression. G. Nephrolithiasis. PLAN: To continue with IV antibiotics for today. If the patient is stable, to be discharged to alf facility tomorrow. I will switch her to oral antibiotic tomorrow prior to discharge, complete the course of treatment. JANET CALVIN MD DR: LEXIE/tiago JOB#: [id number] / [id number]
[2018-09-03] MEDS: INSULIN GLARGINE 300 UNITS/3 ML INSULN.PEN. SQ SCH (20:51)
--- NOTE | 2018-09-03 21:51 | PN ---
DATE: SUBJECTIVE: The patient continues to have mild pain of the right foot along with swelling and redness. She also complains of numbness and paresthesia of both hands, but bilateral fourth and fifth fingers are frequently symptomatic. She denies neck pain or recent neck injuries. The patient denies leaning the elbow against hard surfaces frequently. OBJECTIVE: GENERAL: Morbidly obese female, not in acute distress. VITAL SIGNS: Blood pressure 124/75, respiratory rate 22, pulse is 90, temperature 98.3, oxygen saturation 96% on 2 liters by nasal cannula. HEENT: Normocephalic, atraumatic, otherwise unremarkable. NECK: Supple. Negative for carotid bruit, lymphadenopathy or thyromegaly. LUNGS: Clear to A and P. CARDIOVASCULAR: Regular rhythm, normal S1, S2. ABDOMEN: Soft. Bowel sounds positive. EXTREMITIES: Positive for bilateral edema along with more swelling of the soft tissues, redness and tenderness over the right foot consistent with cellulitis. NEUROLOGIC: Normal mental status and intact cranial nerves. Motor; no focal muscle bulk was seen. The tone is normal. The strength is 4/5 throughout. Sensory examination revealed diminished pinprick and light touch senses in patchy distributions in both distal lower extremities. Deep tendon reflexes were symmetric and hypoactive with absent Achilles responses bilaterally. Gait: The stance is more steady. LABORATORY DATA: CBC revealed white blood cells of 10.6 thousand, hemoglobin 11.7, hematocrit 35.4, platelet count 336,000. Chemistry revealed sodium of 140, potassium 4.4, chloride 103, CO2 33, BUN 14, creatinine 0.8, glucose 99 and calcium 8.7. IMPRESSION: 1. Acute cellulitis on medication. 2. Multiple medical problems include morbid obesity, obstructive sleep apnea, on continuous positive airway pressure, diabetes mellitus, hypertension, chronic obstructive pulmonary disease, chronic low back pain. RECOMMENDATIONS: Continue with current management initiated by Dr. Stinson. We will arrange for EMG/NCS of the upper and lower extremities on outpatient basis. M Tanesha AYERS MD DR: EULOGIO/tiago JOB#: [id number] / [id number]
[2018-09-03 22:22] VITALS: BP 103/53
[2018-09-04] MEDS ORDERED: VANCOMYCIN 2 GM in IV NORMAL SALINE 500ML 500 ML IV SCH ×2
[2018-09-04] MEDS: IBUPROFEN 800 MG TABLET. PO PRN (01:13)
[2018-09-04] MEDS: PIPERACILLIN/TAZOBACTAM 4.5 GM in IV NORMAL SALINE 50ML 50 ML IV SCH (05:15)
[2018-09-04 05:22] VITALS: BP 157/78
[2018-09-04] MEDS: INSULIN LISPRO 300 UNITS/3 ML INSULN.PEN. SQ SCH ×2 (07:44→12:00)
[2018-09-04] MEDS: VENLAFAXINE XR 37.5 MG CAP.ER.24H. PO SCH (07:56)
[2018-09-04] MEDS: MAGNESIUM OXIDE 400 MG TABLET PO SCH (07:57)
[2018-09-04] MEDS: POTASSIUM CHLORIDE 20 MEQ TABLET.ER. PO SCH (07:57)
[2018-09-04] MEDS: buPROPion XL 300 MG TAB.ER.24H. PO SCH (07:57)
[2018-09-04] MEDS: LISINOPRIL 2.5 MG TABLET PO SCH (07:58)
[2018-09-04] MEDS: LACTOBACILLUS RHAMNOSUS GG 1 CAPSULE. PO SCH (07:58)
[2018-09-04] MEDS: TORSEMIDE 20 MG TABLET. PO SCH ×2 (07:59→08:14)
[2018-09-04] MEDS: MEGESTROL 40 MG TABLET. PO SCH (08:00)
[2018-09-04] MEDS: metFORMIN 500 MG TABLET PO SCH (08:00)
[2018-09-04] MEDS: METOPROLOL TART IMMED RELEASE 25 MG TABLET PO SCH (08:00)
[2018-09-04] MEDS: ENOXAPARIN ** NOTE DOSE ** SYRINGE SQ SCH (08:01)
[2018-09-04] MEDS: INSULIN NPH/REG INSULIN 70/30 300 UNITS/3 ML INSULN.PEN. SQ SCH ×2 (08:02→12:04)
[2018-09-04] MEDS ORDERED: NYSTATIN TOPICAL POWDER 15GM BOTTLE. TP PRN (09:00)
[2018-09-04] MEDS ORDERED: TRIAMCINOLONE ACETONIDE 0.1% TOPICAL CREAM 15GM TUBE. TP PRN (09:00)
[2018-09-04 10:37] VITALS: BP 146/79
[2018-09-04] MEDS ORDERED: SULF1TAB24 PO (14:46)
[2018-09-04 15:03] VITALS: BP 154/72
--- NOTE | 2018-09-04 21:11 | DS ---
DATE OF DISCHARGE: 09/04/2018 HOSPITAL COURSE: This is a 63-year-old female patient who was admitted with altered mental status on 07/31/2018. She was found to have right lower extremity cellulitis for which she was started on IV antibiotic in the form of Zosyn and vancomycin. Her redness and swelling of the right foot and right leg has largely subsided, although her blood culture remained negative with no growth after 5 days. The patient has been up and about, fairly independent and a decision was made to discharge her home to continue treatment with oral Bactrim and to follow with her primary care physician, Dr. Lin. PHYSICAL EXAMINATION: GENERAL: When I examined her this afternoon, she looked well and was clearly in no apparent respiratory distress, pale. No jaundice, cyanosis, or thyromegaly. No jugular venous distension. No limb edema. VITAL SIGNS: Her heart rate was 82, blood pressure was 146/79, temperature was 98, respiratory rate 20, and oxygen saturation was 99% on 2 liters oxygen. HEAD, EYES, EARS, NOSE AND THROAT: Showed normocephalic, atraumatic. NECK: Supple. HEART: Showed normal first and second heart sounds. No gallop, rub or murmur. CHEST: Clear to auscultation. No crepitation or rhonchi. ABDOMEN: Distended, soft, nontender. No guarding or rigidity. No organomegaly. All hernial orifice intact. Bowel sounds normal. NEUROLOGIC: She is awake, alert, responding appropriately. All cranial nerves are intact. EXTREMITIES: She moves extremities without difficulty. She continued to have mild swelling and redness of the right leg and right foot compared to the left one. Her intake was 1500, output was incompletely recorded. LABORATORY DATA: Showed a white cell count of 10,000, hemoglobin 12, hematocrit 35, MCV 94 and platelet count of 336,000. Her chemistry showed a serum sodium 140, potassium 4.4, chloride 103, bicarbonate 33, anion gap of 4, BUN 14, creatinine 0.8, estimated GFR was 73 mL per minute, glucose 99 and calcium was 8.7. DISCHARGE MEDICATIONS: The patient was discharged home to continue on sulfamethoxazole/trimethoprim, Bactrim-DS 1 tablet twice a day for 7 days, Wellbutrin 300 mg twice a day, Lantus insulin 75 units at bedtime, lisinopril 2.5 mg once a day, megestrol acetate 20 mg daily, metformin 1000 mg with breakfast, metoprolol tartrate 25 mg twice a day, nystatin powder applied topically twice a day, potassium chloride 40 mEq once a day, simvastatin 40 mg at bedtime, torsemide 60 mg daily, triamcinolone acetonide cream applied topically twice a day, venlafaxine 75 mg p.o. b.i.d. FINAL DISCHARGE DIAGNOSES: 1. Altered mental status, multifactorial, resolved. 2. Right leg cellulitis has largely subsided. She was treated initially with Zosyn, vancomycin, was discharged home to complete the treatment with oral Bactrim. 3. The patient has multiple other medical problems including type 2 diabetes mellitus, hypertension, hyperlipidemia, morbid obesity, obstructive sleep apnea, depression and nephrolithiasis. JANET CALVIN MD DR: LEXIE/tiago JOB#: [id number] / [id number]
--- NOTE | 2018-09-05 03:59 | PN ---
DATE: 09/04/2018 SUBJECTIVE: The patient denies any new medical or neurological complaints. She continues to have numbness and paresthesia of the feet and upper extremities along with swelling of the right foot. OBJECTIVE: GENERAL: Obese female in no acute distress. VITAL SIGNS: Blood pressure 157/78, respiratory rate 20, pulse is 80 and regular, temperature 98, oxygen saturation 92% on CPAP. HEENT: Normocephalic, atraumatic, otherwise unremarkable. NECK: Supple. Negative for carotid bruit, lymphadenopathy or thyromegaly. LUNGS: Clear to A and P. CARDIOVASCULAR: Regular rate and rhythm, normal S1, S2. ABDOMEN: Soft. Bowel sounds positive. EXTREMITIES: Positive for edema and positive for redness and tenderness over the right foot. NEUROLOGIC: The patient is alert and oriented x 3. Speech is fluent. There is no language dysfunction. Memory, judgment, and abstract thinking are normal. The patient denies hallucination or delusion. Cranial nerves are intact. Motor Examination: No focal muscle bulk was seen. The strength was 4/5 throughout. Sensory examination revealed diminished pinprick and light touch senses in stocking distributions. Deep tendon reflexes were symmetric and hypoactive with absent Achilles responses. Gait: The stance is steady. The patient uses a walker for ambulation. IMPRESSION: 1. Acute cellulitis of the right foot. 2. Multiple medical problems include morbid obesity, obstructive sleep apnea, diabetes mellitus, hypertension, chronic low back pain and chronic obstructive pulmonary disease. RECOMMENDATIONS: 1. Continue with current management. 2. We will arrange for EMG/NCS of the upper and lower extremities on an outpatient basis. M Tanesha AYERS MD DR: EULOGIO/tiago JOB#: [id number] / [id number]
== END 2018-09-04 17:05 | disposition home or self-care (01) | DRG 91 ==
LOC: ER 13:04 → 1 SOUTH 17:24 → ER 18:17
PROVIDERS: ADMIT Internal Medicine; ATTEND Internal Medicine
PROC: 5A09357 Assistance with Respiratory Ventilation, Less than 24 Consecutive Hours, Continuous Positive Airway Pressure (ICD-10-PCS; principal; 2018-08-29)
PROC: 5A09357 Assistance with Respiratory Ventilation, Less than 24 Consecutive Hours, Continuous Positive Airway Pressure (ICD-10-PCS; 2018-08-30)
PROC: 5A09357 Assistance with Respiratory Ventilation, Less than 24 Consecutive Hours, Continuous Positive Airway Pressure (ICD-10-PCS; 2018-08-31)
PROC: 5A09357 Assistance with Respiratory Ventilation, Less than 24 Consecutive Hours, Continuous Positive Airway Pressure (ICD-10-PCS; 2018-09-02)
PROC: 5A09357 Assistance with Respiratory Ventilation, Less than 24 Consecutive Hours, Continuous Positive Airway Pressure (ICD-10-PCS; 2018-09-04)
DX: G92 Toxic encephalopathy (principal); E43 Unspecified severe protein-calorie malnutrition; L03.115 Cellulitis of right lower limb; R65.10 Systemic inflammatory response syndrome (SIRS) of non-infectious origin without acute organ dysfunction; E87.1 Hypo-osmolality and hyponatremia; I11.0 Hypertensive heart disease with heart failure; J44.9 Chronic obstructive pulmonary disease, unspecified; I50.9 Heart failure, unspecified; F32.9 Major depressive disorder, single episode, unspecified; E11.9 Type 2 diabetes mellitus without complications; E78.00 Pure hypercholesterolemia, unspecified; E66.01 Morbid (severe) obesity due to excess calories; E83.42 Hypomagnesemia; G47.33 Obstructive sleep apnea (adult) (pediatric); K21.9 Gastro-esophageal reflux disease without esophagitis; G89.29 Other chronic pain; E78.5 Hyperlipidemia, unspecified; K76.0 Fatty (change of) liver, not elsewhere classified; Z83.3 Family history of diabetes mellitus; Z82.49 Family history of ischemic heart disease and other diseases of the circulatory system; Z68.43 Body mass index [BMI] 50.0-59.9, adult; Z90.49 Acquired absence of other specified parts of digestive tract; Z87.442 Personal history of urinary calculi; Z88.1 Allergy status to other antibiotic agents; Z91.81 History of falling; Z79.4 Long term (current) use of insulin
CPT/HCPCS: 36415; 36569; 70450; 73700; 74022; 74177; 80048; 80053; 80202; 81001; 82306; 82947; 83605; 83735; 84145; 85007; 85025; 85027; 85651; 86140; 87040; 93005; 93971; J1650; J1815; J2543; J2997; J3370; J3475; J7040; Q9967; 99285-25; J7030

== ENCOUNTER 2018-10-15 14:59 | Emergency (ER) | payer MEDICARE ==
[~2018-10-15] VITALS: Ht 167.6 cm; Wt 157.0 kg
[~2018-10-15 14:59] MED LIST changes: +BUPR300T3 PO; +MEGE20TA PO; +SULF1TAB24 PO
[2018-10-15 15:00] VITALS: BP 137/83
[2018-10-15] MEDS ORDERED: DIPHTH,PERTUSS(ACELL),TET TOX 0.5 ML DISP.SYRIN. VAX IM ONE ×2 (15:38→15:45)
--- NOTE | 2018-10-15 15:47 | PHYS DOC ---
Past History Past Medical History: CHF, COPD, Depression, Diabetes, High Cholesterol, Hypertension Past Surgical History: Cholecystectomy, , Tonsillectomy Alcohol Use: None Drug Use: None Adult General Chief Complaint Chief Complaint: FINGER INJURY HPI HPI Patient is a 63-year-old female presents with a right ring finger injury that happened shortly prior to arrival. Patient was cutting a cucumber on a mandolin when she accidentally caught her finger. Bleeding was controlled with pressure. There is no new numbness or tingling. No pulsatile bleeding. She is uncertain as to when her last tetanus vaccine was, however it is more than 10 years go. Pain is mild to moderate, no radiation of the discomfort.[] Review of Systems Review of Systems Constitutional: Denies fever or chills [] Eyes: Denies change in visual acuity, redness, or eye pain [] HENT: Denies nasal congestion or sore throat [] Respiratory: Denies cough or shortness of breath [] Cardiovascular: No chest pain or palpitations[] GI: Denies abdominal pain, nausea, vomiting, bloody stools or diarrhea [] : Denies dysuria or hematuria [] Musculoskeletal: Denies back pain or joint pain [] Integument: Denies rash on the see history of present illness[] Neurologic: Denies headache, focal weakness or sensory changes [] Endocrine: Denies polyuria or polydipsia [] All other systems were reviewed and found to be within normal limits, except as documented in this note. Allergies Allergies Allergies Coded Allergies Type Severity Reaction Last Updated Verified No Known Drug Allergies 06/28/17 No Physical Exam Physical Exam Constitutional: Well developed, well nourished, no acute distress, non-toxic appearance. [] HENT: Normocephalic, atraumatic, bilateral external ears normal, oropharynx moist, no oral exudates, nose normal. [] Eyes: PERRLA, EOMI, conjunctiva normal, no discharge. [] Neck: Normal range of motion, no tenderness, supple, no stridor. [] Cardiovascular:Heart rate regular rhythm, no murmur [] Lungs & Thorax: Bilateral breath sounds clear to auscultation [] Abdomen: Not examined. [] Skin: Warm, dry, no erythema, no rash. [] Back: No tenderness, no CVA tenderness. [] Extremities: Right ring finger has a soft tissue injury at the ulnar aspect, involving distal aspect of the nail. There is no suturable wound. FDS, FDP, and extensor mechanisms are intact. Capillary refills less than 2 seconds. 2. discrimination is less than 5 mm. The other 3 extremities show: No tenderness, no cyanosis, no clubbing, ROM intact, no edema. [] Neurologic: Alert and oriented X 3, normal motor function, normal sensory function, no focal deficits noted. [] Psychologic: Affect normal, judgement normal, mood normal. [] EKG EKG [] Radiology/Procedures Radiology/Procedures [] Course & Med Decision Making Course & Med Decision Making Pertinent Labs and Imaging studies reviewed. (See chart for details) ED course: Patient arrived, was placed in bed, and tolerated exam well. Due to no suturable wound, nonadherent gauze was applied and tube gauze overlying that. Patient's tetanus status was updated. Plan was discussed with the patient who voiced understanding. All questions were answered. She was discharged in improved condition Medical decision making: No evidence of neurologic or vascular compromise. No evidence of ligamentous or tendinous injury. No suturable wound. No evidence of need for antibiotics at this time.[] Dragon Disclaimer Dragon Disclaimer This electronic medical record was generated, in whole or in part, using a voice recognition dictation system. Departure Departure: Impression: Primary Impression: Laceration of right ring finger Disposition: 01 HOME, SELF-CARE Condition: STABLE Referrals: [facility] (PCP) Follow-up in 2 days Patient Instructions: Wound Care, [id number] Additional Instructions: Follow-up with your regular doctor in 2 days for a wound check. Return to the ER if worsening pain, purulent drainage, fever of more than 101�, or any other concerns. Problem Qualifiers Primary Impression: Laceration of right ring finger Encounter type: initial encounter Damage to nail status: with damage Foreign body presence: without foreign body Qualified Codes: S61.314A - Laceration without foreign body of right ring finger with damage to nail, initial encounter SCOTTKALI GRIGSBYNANCY LÓPEZ Oct 15, 2018 15:47
== END 2018-10-15 15:56 | disposition home or self-care (01) ==
LOC: ER 14:59
DX: S61.214A Laceration without foreign body of right ring finger without damage to nail, initial encounter (principal); I11.0 Hypertensive heart disease with heart failure; I50.9 Heart failure, unspecified; J44.9 Chronic obstructive pulmonary disease, unspecified; E11.9 Type 2 diabetes mellitus without complications; E78.00 Pure hypercholesterolemia, unspecified; W26.0XXA Contact with knife, initial encounter; Y93.89 Activity, other specified; Y92.89 Other specified places as the place of occurrence of the external cause; Y99.8 Other external cause status
CPT/HCPCS: 90471; 90715; 99284-25